=== PATIENT | female | born 1945 | race Caucasian/White ===

== ENCOUNTER 2017-05-02 00:35 | Outpatient (RCR) | payer MEDICARE ==
[2014-10-06 13:55] VITALS: BMI 29.1
[~2017-05-02 00:35] MED LIST: BENZ100C4 PO; CALC1TAB32 PO; CIPR-214 PO; CIT20 PO; CITA-139 PO; DOCU-416 PO; DONE5TAB29 PO; ENOX100D5 SQ; FURO-45 PO; FURO-47 PO; INDO-1 PO; LEV75 PO; LOR5/325 PO; MULT-820 PO; OMEP-125 PO; OXYB5TAB86 PO; OXYC-823 PO; OXYC-865 PO; OXYIR PO; PANT40TA65 PO; POTA2.5T7 PO; POTA20TA94 PO; PRED-1 PO; QUET25TA PO; RIV10 PO; SIMV5TAB60 PO; SULF-198 PO; TRAZ-156 PO; TRIA15CR40 TP; WARF-1 PO; WARF2.5T62 PO; ZIPR20CA11 PO; ZIPR80CA10 PO
[2017-05-02] MEDS ORDERED: IOPAMIDOL 76% 75 ML INFUS BTL 0 ML ONE (12:00)
[2017-05-02] MEDS ORDERED: IOPAMIDOL 76% 75 ML INFUS BTL 75 ML ONE (12:04)
--- NOTE | 2017-05-02 14:14 | RADIOLOGY IMAGING REPORT ---
FACILITY: [facility] PATIENT NAME: Lizzette Benjamin : 1945 MR: [id number] V: [id number] EXAM DATE: ORDERING PHYSICIAN: RIP MAY TECHNOLOGIST: Location: Patient: Lizzette Benjamin : 1945 Visit/Account:[id number] Date of Sevice: 05/02/2017 ABDOMEN/PELVIS WITH CONTRAST HISTORY: Hiatal hernia TECHNIQUE: Following administration of IV contrast contiguous axial images acquired through the abdom en/pelvis. Coronal and sagittal reformatting also performed. Dose Lowering Technique One of the following dose optimization techniques was utilized in the performance of this exam: Autom ated exposure control; adjustment of the mA and/or kV according to the patient's size; or use of an i terative reconstruction technique. Specific details can be referenced in the facility's radiology C T exam operational policy. CONTRAST: 75 mL Isovue-370 COMPARISON: July 01, 2013 and June 09, 2009 and August 15, 2006 FINDINGS: Visualized lung bases: There are pulmonary nodules seen in the lung bases bilaterally largest measur ing 6 mm in the right lower lobe although these appear to remain stable when compared to the prior CT dating back to 2006 Hepatobiliary: There Is a 5.6 x 4.8 cm cyst in the posterior right lobe the liver. There are additio nal small hypodensity seen throughout the liver that appear similar to the prior study likely represe nting additional cysts although are too small to characterize. There are postsurgical changes from a cholecystectomy Spleen: Negative. Adrenals: Negative. Pancreas: Negative. Kidneys ureters or bladder: Negative. Genitalia: Hysterectomy GI: There is diverticulosis left-sided colon although no CT evidence of acute diverticulitis is a ve ry large hiatal hernia appears slightly increased when compared the prior study Vessels/spaces/nodes: Negative. Bones/soft tissues: No aggressive appearing bone lesions are seen Additional findings: None pertinent. IMPRESSION: Large hiatal hernia slightly increased in size when compared the prior study Diverticulosis left-sided colon although no CT evidence of acute diverticulitis Hepatic cysts Pulmonary nodules are seen in the lower lung romero stable since 2006 Postsurgical changes from hysterectomy and cholecystectomy Report Dictated By: Alondra Worrell MD at 05/02/2017 1:56 PM Report E-Signed By: Alondra Worrell MD at 05/02/2017 2:10 PM WSN:[email or web address]
[2017-05-06] MEDS ORDERED: BARIUM SULFATE 176 GM BTL PO ONE (10:49)
[2017-05-06] MEDS ORDERED: BARIUM SULFATE 340 GM POWD ONE (10:49)
--- NOTE | 2017-05-06 16:44 | RADIOLOGY IMAGING REPORT ---
FACILITY: [facility] PATIENT NAME: Lizzette Benjamin : 1945 MR: [id number] V: [id number] EXAM DATE: ORDERING PHYSICIAN: RIP MAY TECHNOLOGIST: Location: [facility] - [place] Patient: Lizzette Benjamin : 1945 Visit/Account:[id number] Date of Sevice: 05/06/2017 Exam type: UPPER GI SERIES W/O AIR History: Abdomen pain, acid reflux and belching Comparison: None. Findings: Double contrast upper GI series was performed with thick and thin barium tertiary waves were noted wi thin the esophagus. There is a large hiatal hernia present with moderate narrowing of the distal eso phagus. 12 mm barium tablet did however pass into the stomach. No other abnormality of the stomach duodenal bulb or duodenal C-loop was seen a moderate amount of gastroesophageal reflux was observed. The fluoroscopy dose area product was 1200.47 micro-Dash per meter squared IMPRESSION: 1. Large hiatal hernia with a moderate narrowing of the distal esophagus however a 12 mm barium tabl et did pass into the stomach. Moderate gastric esophageal reflux Marked tertiary waves within the esophagus Report Dictated By: Alondra Worrell MD at 05/06/2017 4:35 PM Report E-Signed By: Alondra Worrell MD at 05/06/2017 4:39 PM WSN:[email or web address]
== END 2017-05-06 18:00 | disposition home or self-care (01) ==
LOC: CT 00:35
PROVIDERS: ATTEND Family Medicine
DX: K44.9 Diaphragmatic hernia without obstruction or gangrene (principal); K57.90 Diverticulosis of intestine, part unspecified, without perforation or abscess without bleeding; K76.89 Other specified diseases of liver; R91.1 Solitary pulmonary nodule; Z90.710 Acquired absence of both cervix and uterus; Z90.49 Acquired absence of other specified parts of digestive tract
CPT/HCPCS: 74177; 74240; Q9967

== ENCOUNTER 2017-08-07 04:42 | Outpatient (RCR) | payer MEDICARE ==
[2014-10-06 13:55] VITALS: BMI 29.1
[~2017-08-07 04:42] MED LIST changes: -CITA-139 PO; +CITA-145 PO; +DIPH-1 PO; +QUET200T PO; +SUCR1ORA17 PO
--- NOTE | 2017-08-07 09:47 | RADIOLOGY IMAGING REPORT ---
FACILITY: [facility] [place] PATIENT NAME: Lizzette Benjamin : 1945 MR: [id number] V: [id number] EXAM DATE: ORDERING PHYSICIAN: RIP MAY TECHNOLOGIST: Location: [facility] [place] Patient: Lizzette Benjamin : 1945 Visit/Account:[id number] Date of Sevice: 08/07/2017 ADDENDUM #1 Dose Lowering Technique One of the following dose optimization techniques was utilized in the performance of this exam: Autom ated exposure control; adjustment of the mA and/or kV according to the patient's size; or use of an i terative reconstruction technique. Specific details can be referenced in the facility's radiology C T exam operational policy. Report Dictated By: Alondra Worrell MD at 08/13/2017 3:20 PM Report E-Signed By: Alondra Worrell MD at 08/13/2017 3:20 PM ORIGINAL REPORT EXAMINATION: Head CT without intravenous contrast HISTORY: Sudden vision loss, headache TECHNIQUE: Contiguous axial images were obtained from the skull base to the vertex without intraven ous contrast. Sagittal and coronal reformatted images are also submitted. COMPARISON: Head CT December 05, 2016 FINDINGS: Brain volume: Normal. Ventricles: Normal. Acute ischemic changes: None. Hemorrhage: None. Masses / edema: None. Dash-white: Negative. White matter: Normal. Vessels: There are calcifications in the carotid siphons bilaterally. Extra-axial: Negative. Calvarium / scalp: There are multiple soft tissue nodules in the scalp similar to the prior CT Skull base / visualized face: Negative. Visualized sinuses / orbits: Negative. IMPRESSION: No acute intracranial process identified Calcifications are noted in the carotid siphons bilaterally. If patient's symptoms persist MR may be helpful Report Dictated By: Alondra Worrell MD at 08/07/2017 9:38 AM Report E-Signed By: Alondra Worrell MD at 08/07/2017 9:42 AM WSN:[email or web address]
--- NOTE | 2017-08-13 09:54 | RADIOLOGY IMAGING REPORT ---
[place] [facility] [place] NAME: Lizzette Benjamin : 1945 MR: [id number] V: [id number] EXAM DATE: ORDERING PHYSICIAN: RIP MAY TECHNOLOGIST: Location: [facility] Patient: Lizzette Benjamin : 1945 Visit/Account:[id number] Date of Sevice: 08/13/2017 Carotid artery Doppler duplex ultrasound scan. HISTORY: Sudden vision loss. A color flow Doppler duplex ultrasound scan with spectral analysis was performed on the carotid and v ertebral arteries bilaterally. Measurement of carotid stenosis is based on velocity parameters that correlate the residual internal carotid diameter with [place] Symptomatic Carotid Endarterecto my Trial (NASCET)- based stenosis levels. Right carotid peak systolic velocities are as follows: Superior right ICA - 81 cm/sec. Mid right ICA - 79 cm/sec. Proximal right ICA - 71 cm/sec. Right carotid bulb - 58 cm/sec. Superior right CCA - 70 cm/sec. Mid right CCA- 80 cm/sec. Inferior right CCA- 96 cm/sec. Proximal right ECA- 95 cm/sec. Mid right vertebral- 58 cm/sec. Right ICA/CCA ratio- 1.0 ( normal < 1.5 ). Antegrade right vertebral artery flow- YES. Left carotid peak systolic velocities are as follows: Superior left ICA - 90 cm/sec. Mid left ICA- 60 cm/sec. Proximal left ICA- 49 cm/sec. Left carotid bulb- 61 cm/sec. Superior left CCA- 62 cm/sec. Mid left CCA- 63 cm/sec. Inferior left CCA- 86 cm/sec. Proximal left ECA- 78 cm/sec. Mid left vertebral- 50 cm/sec. Left ICA/CCA ratio- 1.4 ( normal < 1.5). Antegrade left vertebral artery flow- YES. Intimal thickening and a few partially calcified plaques are present in the carotid bulbs and proxima l internal and external carotid arteries bilaterally resulting in 30-50% stenoses by visual criteria. IMPRESSION: 30-50% stenoses of the carotid bulbs and proximal internal carotid arteries bilaterally. Report Dictated By: Reddy Brooke MD at 08/13/2017 9:46 AM Report E-Signed By: Reddy Brooke MD at 08/13/2017 9:50 AM WSN:[id number]
== END 2017-08-13 18:00 | disposition home or self-care (01) ==
LOC: CT 04:42 → EDSTATUS 13:33 → CT 08-13 18:00
PROVIDERS: ATTEND Family Medicine
DX: H53.139 Sudden visual loss, unspecified eye (principal); I65.23 Occlusion and stenosis of bilateral carotid arteries
CPT/HCPCS: 70450; 93880

== ENCOUNTER → 2017-09-20 | Outpatient (CLI) | payer MEDICARE ==
[2014-10-06 13:55] VITALS: BMI 29.1
[~2017-09-20] MED LIST changes: -INDO-1 PO; +INDO-21 PO; -TRAZ-156 PO; +TRAZ50TA34 PO
--- NOTE | 2017-09-20 16:07 | RADIOLOGY IMAGING REPORT ---
FACILITY: PATIENT NAME: Lizzette Benjamin : 1945 MR: [id number] V: [id number] EXAM DATE: ORDERING PHYSICIAN: OTIS ASCENCIO TECHNOLOGIST: [facility] Patient: Lizzette Benjamin : 1945 Visit/Account:[id number] Date of Sevice: 09/20/2017 EXAMINATION: Nuclear Medicine Bone Scan, Three-phase Additional Pertinent history: Bilateral knee replacement. Pain. Swelling. COMPARISON STUDIES: None available TECHNIQUE: 24.2 mCi Tc HDP were injected intravenously. Angiographic, blood pool, and delayed gamma camera images were obtained of the bilateral knees and lower legs FINDINGS: Arterial phase images: No focal abnormality. Blood pool images of soft tissue: No focal abnormality. Delayed images of bone: There is evidence of normal expected uptake about the bilateral arthroplasti es of the knees without a focal abnormal increased uptake identified. There is mild increased uptake within the right tibiotalar joint and right midfoot region likely degenerative in nature. . IMPRESSION: 1. Evidence of normal expected symmetric uptake about the bilateral knee arthroplasties as above. 2. Likely degenerative uptake within the right ankle and midfoot Report Dictated By: Toni Begum MD at 09/20/2017 3:49 PM Report E-Signed By: Toni Begum MD at 09/20/2017 4:02 PM WSN:[email or web address]
== END ==
LOC: NUC 03:30
PROVIDERS: ATTEND Orthopaedic Surgery
DX: Z96.653 Presence of artificial knee joint, bilateral (principal)
CPT/HCPCS: 78315; A9503

== ENCOUNTER 2017-11-05 13:45 | Outpatient (RCR) | payer MEDICARE ==
[2014-10-06 13:55] VITALS: BMI 29.1
--- NOTE | 2017-08-09 11:41 | PT INITIAL EVALUATION ---
MEDICAL DIAGNOSIS: legs pain back pains TREATMENT DIAGNOSIS: same, cervical, thoracic, and lumbar pain DATE OF ONSET: 07/18/17 SUBJECTIVE: Lizzette Benjamin presents to physical therapy with B knee pain, cervical, thoracic, and lumbar pain that started approximately 3 weeks ago for no apparent reason. She reports that the cervical, thoracic, and lumbar pain came on at the exact same time. She rates her back pain to be 9/10. She rates that it is worse with bending, walking, lying, and in the pm. She reports that her pain is better with sitting, standing, as the day progresses, and in the am. She reports that her pain is disturbing her sleep. She reports that her bladder and bowel control has not changed since the back injury started. She denies recent accident, surgery, or imaging. She denies any increase in pain with coughing and sneezing; however, she reports an increase in pain with straining. She reports that she does have night pain and has lost 10 to 20 pounds over the last few months. She states that she has been trying to lose the weight. Pain location is T2-T12 and L3-5 and described as sharp. REHAB PROBLEM LIST: Increased Pain Decreased ROM Decreased Strength Decreased Endurance Decreased Balance Decreased Function Decreased ADL's Decreased Gait PREVIOUS MEDICAL HISTORY: See EMR OCCUPATION: Retired OBJECTIVE: Posture: She demonstrated B rounded shoulders, forward head, increased thoracic kyphosis, decreased lumbar lordosis; however, she does not demonstrate any R or L lateral shift. ROM: Trunk AROM: flexion: minimal restriction with painful end feel. extension: moderate restriction with painful end feel. side gliding R: minimal restriction with painful end feel. side gliding L: moderate restriction with painful end feel. Strength: B hip extension, abduction, flexion, B knee extension and flexion, and B ankle PF and DF: 4/5. B hip adduction: 5/5 Palpation: TTP: central spinous process of T2-T12 and L3-5 Sensation: Intact L2-S1 Special Tests: Repeated trunk flexion in lying: pain during the test and worse following the test. Repeated trunk extension in lying: pain during the test and worse following the test with peripheralized pain down her L LE. Repeated R and L side gliding: pain during the test and worse following the test. Repeated prone with L hip shift: pain during the test and better following the test with centralized low back pain and abolished radiating pain. Will test thoracic and cervical in the future. Mobility: Independent Gait: She demonstrated the following gait mechanics independently: increased base of support, normal B feet clearance, equal step lengths, increased lateral trunk movements, decreased B pelvic mobility, and no LOB. ASSESSMENT: Lizzette will benefit from skilled physical therapy addressing the listed impairments to improve function and QOL. Based on examination, her provisional classification is a derangement that responded well to postural lateral repeated movement. Short Term Goals 3 weeks: Pt will demonstrate centralized low back pain to improve function and QOL. 6 weeks: Pt will demonstrate centralized thoracic pain to improve function and QOL. 8 weeks: Pt will demonstrate abolished thoracic and low back pain to improve function and QOL. Patient's Goals get rid of her pain so that she can get back to gardening. PLAN: Patient to be seen for Manual Therapy/STM/MET Strengthening/condition Range of Motion Spinal Stabilization Work Hardening/Cond Stretching Neuromuscular Re-ed Closed Chain Program Posture/Body mechanics Gait Trg/Balance Trg Home Exercise Program Therapeutic Activities 2-3x/Week for 2 Months If you have any questions, comments, or concerns about this report or plan, please contact me at . Thank you, Toni Hinton, PT, DPT MTDD
--- NOTE | 2017-09-10 15:59 | PT PLAN OF CARE ---
Physician: Judy Cotter DO Patient is being seen: 2x/week Therapist: Toni Hinton, PT, DPT Medical Diagnosis: legs pain back pains Treatment Diagnosis: same, cervical, thoracic, and lumbar pain Date of Onset: 07/18/17 Date of Initial Evaluation: 08/08/17 Date patient was last seen: 09/09/17 Number of treatments: 10 Number of cancellations/No shows: 0 INTERVENTIONS: Manual Therapy/STM/MET Strengthening/condition Range of Motion Spinal Stabilization Work Hardening/Cond Stretching Neuromuscular Re-ed Closed Chain Program Posture/Body mechanics Gait Trg/Balance Trg Home Exercise Program Therapeutic Activities GOALS: 3 weeks: Pt will demonstrate centralized low back pain to improve function and QOL. MET 6 weeks: Pt will demonstrate centralized thoracic pain to improve function and QOL. Progressing well 8 weeks: Pt will demonstrate abolished thoracic and low back pain to improve function and QOL. Progressing well PATIENT'S GOAL: get rid of her pain so that she can get back to gardening. Status of Patient's Goals: Progressing well Patient Compliance: Good Prognosis: Good Reasons for continuing therapy: This is progress note for Lizzette Benjamin. She reports that her cervical spine are doing well and denies any pain. She reports that her low back pain is doing well and denies any pain. She reports that she has mid back pain and rates it to be 5/10. She demonstrated abolished low back and cervical pain with full cervical and trunk AROM in all directions with normal end feels. Furthermore, she centralized and abolished her thoracic pain by utilizing extension based principles. We will continue to centralize and abolish her thoracic pain until it has continued to stay abolished and then perform return to prior level of function activities. Posture: She demonstrated B rounded shoulders, forward head, increased thoracic kyphosis, decreased lumbar lordosis; however, she does not demonstrate any R or L lateral shift. ROM: Trunk AROM: flexion: NIL restriction with normal end feel. extension: NIL restriction with normal end feel. side gliding R: NIL restriction with normal end feel. side gliding L: NIL restriction with normal end feel. Strength: B hip extension, abduction, flexion, B knee extension and flexion, and B ankle PF and DF: 4/5. B hip adduction: 5/5 Palpation: TTP: central spinous process of T8 Mobility: Independent If you have any questions, please contact me at [phone]. Thank you, Toni Hinton, PT, DPT MTDD
--- NOTE | 2017-10-23 17:10 | PT PLAN OF CARE ---
Physician: Judy Cotter DO Patient is being seen: 2x/week Therapist: Toni Hinton, PT, DPT Medical Diagnosis: legs pain back pains Treatment Diagnosis: same, cervical, thoracic, lumbar pain, and B knee pain Date of Onset: 07/18/17 Date of Initial Evaluation: 08/08/17 Date patient was last seen: 10/22/17 Number of treatments: 20 Number of cancellations/No shows: 0 INTERVENTIONS: Manual Therapy/STM/MET Strengthening/condition Range of Motion Spinal Stabilization Work Hardening/Cond Stretching Neuromuscular Re-ed Closed Chain Program Posture/Body mechanics Gait Trg/Balance Trg Home Exercise Program Therapeutic Activities GOALS: 3 weeks: Pt will demonstrate centralized low back pain to improve function and QOL.MET 6 weeks: Pt will demonstrate centralized thoracic pain to improve function and QOL. MET 8 weeks: Pt will demonstrate abolished thoracic and low back pain to improve function and QOL. MET 8 weeks: Pt will be able to ambulation around her block without an increase in her B knees to improve function and QOL. 10 weeks: Pt will be able to demonstrate 4+/5 or greater with B hip, knee, and ankle strength to improve function and QOL. PATIENT'S GOAL: get rid of her pain so that she can get back to gardening. Status of Patient's Goals: Progressing Patient Compliance: Good Prognosis: Good Reasons for continuing therapy: This is a progress note for Lizzette Benjamin. She reports that she is doing well. She states that her low back, mid back, and cervical neck pain has abolished. Furthermore, she reports that she will continue to do the specific exercise twice daily for 6 more weeks. She reports that she would like to start working on her B knees to see if we can reduce that pain. She continues to demonstrate full trunk AROM in all directions with normalized end feels. She is independent with her specific exercises for her cervical, thoracic, and lumbar regions. We assessed her B knees today with increased pain and reduced PROM-AROM with B knee flexion and extension with abnormal end feels (empty end feels), increased pain with MMT's of flexion and extension, and reduced B hip abductor, flexion, extension, B knee flexion and extension, and B ankle PF and DF strength (4/5). Furthermore, she demonstrated reduced patellar accessory mobility superiorly, inferiorly, and medially. We will treat the impairments to see if pain can be reduced and function can be increased. Posture: She demonstrated B rounded shoulders, forward head, increased thoracic kyphosis, decreased lumbar lordosis; however, she does not demonstrate any R or L lateral shift. ROM: Trunk AROM: flexion: NIL restriction with normal end feel. extension: NIL restriction with normal end feel. side gliding R: NIL restriction with normal end feel. side gliding L: NIL restriction with normal end feel. Strength: B hip extension, abduction, flexion, B knee extension and flexion, and B ankle PF and DF: 4/5. B hip adduction: 5/5 Palpation: TTP: central spinous process of T8 Mobility: Independent If you have any questions, please contact me at [phone]. Thank you, Toni Hinton, PT, DPT SILVINOD
== END 2017-11-06 ==
LOC: PT 13:45
PROVIDERS: ATTEND Family Medicine
DX: M54.5 Low back pain (principal); M54.2 Cervicalgia; M54.6 Pain in thoracic spine; M25.561 Pain in right knee; M25.562 Pain in left knee
CPT/HCPCS: 97162

== ENCOUNTER → 2017-11-28 | Outpatient (CLI) | payer MEDICARE ==
[2014-10-06 13:55] VITALS: BMI 29.1
--- NOTE | 2017-11-28 14:34 | RADIOLOGY IMAGING REPORT ---
FACILITY: [facility] - [place] PATIENT NAME: Lizzette Benjamin : 1945 MR: [id number] V: [id number] EXAM DATE: ORDERING PHYSICIAN: RIP MAY TECHNOLOGIST: Location: [facility] Patient: Lizzette Benjamin : 1945 Visit/Account:[id number] Date of Sevice: 11/28/2017 Exam type: VENOUS DOPP LOW RIGHT EXTREMIT History: Right ankle pain and swelling Comparison: May 25, 2016. Findings: Right lower extremity veins were imaged including the right common femoral vein greater saphenous vei n superficial femoral vein popliteal vein posterior tibial vein anterior tibial vein peroneal vein re vealing no evidence of intraluminal thrombi. The veins were compressible and demonstrated augmentati on IMPRESSION: 1. No sonographic evidence DVT involving the lower extremity veins of the right leg Report Dictated By: Alondra Worrell MD at 11/28/2017 2:28 PM Report E-Signed By: Alondra Worrell MD at 11/28/2017 2:29 PM WSN:[email or web address]
== END ==
LOC: US 07:15
PROVIDERS: ATTEND Family Medicine
DX: M25.571 Pain in right ankle and joints of right foot (principal); M25.471 Effusion, right ankle

== ENCOUNTER 2017-12-24 13:58 | Outpatient (RCR) | payer MEDICARE ==
[2014-10-06 13:55] VITALS: BMI 29.1
--- NOTE | 2017-11-14 15:23 | PT PLAN OF CARE ---
Physician: Judy Cotter DO Patient is being seen: 2x/week Therapist: Toni Hinton, PT, DPT Medical Diagnosis: legs pain back pains Treatment Diagnosis: same, cervical, thoracic, and lumbar pain Date of Onset: 07/18/17 Date of Initial Evaluation: 08/08/17 Date patient was last seen: 11/14/17 Number of treatments: 26 Number of cancellations/No shows: 0 INTERVENTIONS: Manual Therapy/STM/MET Strengthening/condition Range of Motion Spinal Stabilization Work Hardening/Cond Stretching Neuromuscular Re-ed Closed Chain Program Posture/Body mechanics Gait Trg/Balance Trg Home Exercise Program Therapeutic Activities GOALS: 3 weeks: Pt will demonstrate centralized low back pain to improve function and QOL. MET 6 weeks: Pt will demonstrate centralized thoracic pain to improve function and QOL. MET 8 weeks: Pt will demonstrate abolished thoracic and low back pain to improve function and QOL. MET 8 weeks: Pt will be able to ambulation around her block without an increase in her B knees to improve function and QOL. 10 weeks: Pt will be able to demonstrate 4+/5 or greater with B hip, knee, and ankle strength to improve function and QOL. PATIENT'S GOAL: get rid of her pain so that she can get back to gardening. Progressing Status of Patient's Goals: Progressing well Patient Compliance: Good Prognosis: Good Reasons for continuing therapy: This is a progress note for Lizzette Benjamin. She reports that she is doing well. She denies any lumbar, thoracic, or cervical pain. She reports that she feels like her core and B LE's are getting stronger. She reports that she also feels less pain in her B LE's. She states that she is much more functional at with home with her garden and with her other chores. She is progressing well with abolished low back, thoracic, and cervical pain with a return to full AROM. Furthermore, she has demonstrated significant improvements with B hips, B knees, and B ankle musculature with reduction of B LE pain. We will continue to improve core and B LE strength and return to prior level of function in the next 10 session and then discharged to [facility]. Posture: She demonstrated B rounded shoulders, forward head, increased thoracic kyphosis, decreased lumbar lordosis; however, she does not demonstrate any R or L lateral shift. ROM: Trunk AROM: flexion: NIL restriction with normal end feel. extension: NIL restriction with normal end feel. side gliding R: NIL restriction with normal end feel. side gliding L: NIL restriction with normal end feel. Strength: B hip extension, abduction, flexion, B knee extension and flexion, and B ankle PF and DF: 4/5. B hip adduction: 5/5 Palpation: TTP: central spinous process of T8 Mobility: Independent If you have any questions, please contact me at [phone]. Thank you, Toni Hinton, PT, DPT MTDD
--- NOTE | 2017-12-19 14:47 | PT PLAN OF CARE ---
Physician: Judy Cotter DO Patient is being seen: 2x/week Therapist: Toni Hinton, PT, DPT Medical Diagnosis: legs pain back pains Treatment Diagnosis: same, cervical, thoracic, and lumbar pain Date of Onset: 07/18/17 Date of Initial Evaluation: 08/08/17 Date patient was last seen: 12/19/17 Number of treatments: 36 Number of cancellations/No shows: 2 INTERVENTIONS: Manual Therapy/STM/MET Strengthening/condition Range of Motion Spinal Stabilization Work Hardening/Cond Stretching Neuromuscular Re-ed Closed Chain Program Posture/Body mechanics Gait Trg/Balance Trg Home Exercise Program Therapeutic Activities GOALS: 3 weeks: Pt will demonstrate centralized low back pain to improve function and QOL. MET 6 weeks: Pt will demonstrate centralized thoracic pain to improve function and QOL. MET 8 weeks: Pt will demonstrate abolished thoracic and low back pain to improve function and QOL. MET 10 weeks: Pt will be able to demonstrate 4+/5 or greater with B hip, knee, and ankle strength to improve function and QOL. PATIENT'S GOAL: get rid of her pain so that she can get back to gardening. Progressing Status of Patient's Goals: Progressing well Patient Compliance: Good Prognosis: Good Reasons for continuing therapy: This is a progress note for Lizzette Benjamin. She reports that she is doing well. She denies any lumbar, thoracic, or cervical pain. She reports that she feels like her core and B LE's are getting stronger. She reports that the B knee pain has returned and rates her pain to be 6/10. She reports minimal pain with walking. She states that she is much more functional at with home with her garden and with her other chores. She is progressing well with abolished low back, thoracic, and cervical pain with a return to full AROM. She demonstrated potential reduction of pain with repeated knee flexion and abolished pain with ambulation following the session. She continues to have resting pain of 5/10. We will see if the motion reduces her knee pain and then we will discharge in the next 2 sessions. Posture: She demonstrated B rounded shoulders, forward head, increased thoracic kyphosis, decreased lumbar lordosis; however, she does not demonstrate any R or L lateral shift. ROM: Trunk AROM: flexion: NIL restriction with normal end feel. extension: NIL restriction with normal end feel. side gliding R: NIL restriction with normal end feel. side gliding L: NIL restriction with normal end feel. Strength: B hip extension, abduction, flexion, B knee extension and flexion, and B ankle PF and DF: 5/5. B hip adduction: 5/5 Mobility: Independent If you have any questions, please contact me at [phone]. Thank you, Toni Hinton, PT, DPT SILVINOD
--- NOTE | 2017-12-24 16:03 | PT PLAN OF CARE ---
Physician: Judy Cotter DO Patient is being seen: 2x/week Therapist: Toni Hinton, PT, DPT Medical Diagnosis: legs pain back pains Treatment Diagnosis: same, cervical, thoracic, and lumbar pain Date of Onset: 07/18/17 Date of Initial Evaluation: 08/08/17 Date patient was last seen: 12/24/17 Number of treatments: 37 Number of cancellations/No shows: 2 INTERVENTIONS: Manual Therapy/STM/MET Strengthening/condition Range of Motion Spinal Stabilization Work Hardening/Cond Stretching Neuromuscular Re-ed Closed Chain Program Posture/Body mechanics Gait Trg/Balance Trg Home Exercise Program Therapeutic Activities GOALS: 3 weeks: Pt will demonstrate centralized low back pain to improve function and QOL. MET 6 weeks: Pt will demonstrate centralized thoracic pain to improve function and QOL. MET 8 weeks: Pt will demonstrate abolished thoracic and low back pain to improve function and QOL. MET 10 weeks: Pt will be able to demonstrate 4+/5 or greater with B hip, knee, and ankle strength to improve function and QOL. MET PATIENT'S GOAL: get rid of her pain so that she can get back to gardening. MET Status of Patient's Goals: MET Patient Compliance: MET Prognosis: Good Reasons for continuing therapy: This is a discharge note for Lizzette Benjamin. She reports that she is doing well. She denies any cervical, thoracic, and lumbar pain. She reports that her B knees are doing better as well. She reports that she no longer has the extremely intense pain on the back sides of her knees. He occasionally feels B lateral knee pain that improves with her repeated knee flexion. She has progressed well within PT with abolished cervical, thoracic, and lumbar pain. She has progressed well with abolished B knee pain in most areas; however, she continues to have lateral knee pain that seems to be decreased or even abolished with repeated knee flexion. Furthermore, she has demonstrated significant improvements in core and B LE strength. She has returned to prior level of function. She has met all of her goals. As a result, she will be discharged from PT to [facility]. Posture: She demonstrated B rounded shoulders, forward head, increased thoracic kyphosis, decreased lumbar lordosis; however, she does not demonstrate any R or L lateral shift. ROM: Trunk AROM: flexion: NIL restriction with normal end feel. extension: NIL restriction with normal end feel. side gliding R: NIL restriction with normal end feel. side gliding L: NIL restriction with normal end feel. Strength: B hip extension, abduction, flexion, B knee extension and flexion, and B ankle PF and DF: 5/5. B hip adduction: 5/5 Mobility: Independent If you have any questions, please contact me at [phone]. Thank you, Toni Hinton, PT, DPT SILVINOD
== END 2017-12-24 18:00 | disposition home or self-care (01) ==
LOC: PT 13:58
PROVIDERS: ATTEND Family Medicine
DX: M54.5 Low back pain (principal); M54.2 Cervicalgia; M54.6 Pain in thoracic spine; M25.561 Pain in right knee; M25.562 Pain in left knee

== ENCOUNTER → 2018-01-01 | Outpatient (CLI) | payer MEDICARE ==
[2014-10-06 13:55] VITALS: BMI 29.1
[~2018-01-01] MED LIST changes: +CITA-141 PO; +DONE10TA45 PO; +QUET400T PO
[2018-01-01 15:30] LABS: PLATELET COUNT, AUTOMATED 588 K/uL (150-450)
[2018-01-01 15:38] LABS: LDL CHOLESTEROL 72 mg/dl
== END ==
LOC: LAB 15:14
PROVIDERS: ATTEND Internal Medicine
DX: M54.9 Dorsalgia, unspecified (principal); F41.8 Other specified anxiety disorders; K21.9 Gastro-esophageal reflux disease without esophagitis; E78.5 Hyperlipidemia, unspecified; E03.9 Hypothyroidism, unspecified; N32.81 Overactive bladder; R73.9 Hyperglycemia, unspecified
CPT/HCPCS: 36415; 81001; 82040; 82247; 82310; 82374; 82435; 82465; 82565; 82947; 83036; 83718; 84075; 84132; 84155; 84295; 84443; 84450; 84460; 84478; 84520; 84550; 85025

== ENCOUNTER → 2018-01-08 | Outpatient (CLI) | payer MEDICARE ==
[2014-10-06 13:55] VITALS: BMI 29.1
[~2018-01-08] MED LIST changes: +CHOL10005 PO; +MELO-205 PO; +SIMV-49 PO
--- NOTE | 2018-01-08 14:15 | RADIOLOGY IMAGING REPORT ---
FACILITY: [facility] PATIENT NAME: RADHA PHILIP : [id number] MR: [id number] V: [id number] EXAM DATE: [id number] ORDERING PHYSICIAN: CLARIBEL DICK TECHNOLOGIST: Hugo Allen RDMS, JUDITH PROCEDURE:US BILATERAL BREAST COMPARISON:None. INDICATIONS:BILATERAL BREAST PAIN FINDINGS: In the 9 o'clock position of the Right breast 4cm from the nipple there is a 9.7 x 8.7 x 5.1mm ovoid echogenic nodule which may represent a small fatty replaced lymph node or other fatty deposit. No other sonographic abnormality was identified in the Right breast. The entire Left breast was imaged sonographically revealing no abnormality. DIAGNOSTIC CATEGORY 0--INCOMPLETE: NEED ADDITIONAL IMAGING EVALUATION. RECOMMENDATIONS: ADDITIONAL MAMMOGRAPHIC VIEWS REQUIRED: BILATERAL BREASTS. IMPRESSION: BIRADS 0: Incomplete. There is a small fatty nodule in the 9 o'clock position of the Right breast. The remainder of the bilateral breast Ultrasound was unremarkable. Bilateral diagnostic mammogram is recommended to evaluate patient's bilateral breast pain. Dictated by: Alondra Worrell M.D. on 01/08/2018 at 11:59 Transcribed by: VICTOR MANUEL on 01/08/2018 at 13:11 Approved by: Alondra Worrell M.D. on 01/08/2018 at 14:14 [facility]
== END ==
LOC: US 01:00
PROVIDERS: ATTEND Internal Medicine
DX: N63.13 Unspecified lump in the right breast, lower outer quadrant (principal)

== ENCOUNTER → 2018-01-08 | Outpatient (CLI) | payer MEDICARE ==
[2014-10-06 13:55] VITALS: BMI 29.1
--- NOTE | 2018-01-08 12:30 | RADIOLOGY IMAGING REPORT ---
[place] [facility] [place] NAME: Lizzette Benjamin : 1945 MR: [id number] V: [id number] EXAM DATE: ORDERING PHYSICIAN: RIP MAY TECHNOLOGIST: Location: [facility] [place] Patient: Lizzette Benjamin : 1945 Visit/Account:[id number] Date of Sevice: 01/08/2018 Exam type: CHEST PA AND LAT History: Shortness of breath, history of pneumonia, Comparison: January 30, 2016. Findings: The lungs appear free of acute effusions, infiltrates or edema. Cardiac silhouette is normal in size . There is a large hiatal hernia projecting in the retrocardiac space. This mild ectasia the thorac ic aorta. There is a suggestion of old right-sided rib fractures. IMPRESSION: 1. Large hiatal hernia No evidence of acute pulmonary consolidation Report Dictated By: Alondra Worrell MD at 01/08/2018 12:20 PM Report E-Signed By: Alondra Worrell MD at 01/08/2018 12:24 PM WSN:[email or web address]
== END ==
LOC: RAD 10:33
PROVIDERS: ATTEND Family Medicine
DX: K44.9 Diaphragmatic hernia without obstruction or gangrene (principal)
CPT/HCPCS: 71046

== ENCOUNTER 2018-01-20 10:49 | Emergency (ER) | payer MEDICARE ==
[2014-10-06 13:55] VITALS: Wt 92.5 kg
--- NOTE | 2018-01-20 11:13 | ER Report ---
History and Physical Time Seen By MD: 11:12 [facility]/ROS CHIEF COMPLAINT: Abdominal pain HISTORY OF PRESENT ILLNESS: This is a 72-year-old female presents to the emergency department for epigastric and abdominal pain. Patient states that she was diagnosed with a hiatal hernia last year, feels as though it has been getting worse, over the last month that seems to be increasing in intensity, today is significantly worse generalized abdominal pain with severe epigastric discomfort. Nausea and vomiting. No fevers or chills. No diarrhea. Normal bowel movement today. Patient decided to come in for further evaluation due to the intensity of the pain. No dysuria. No chest pain or shortness of breath. Although it does increase the epigastric pain with a deep breath. REVIEW OF SYSTEMS: Constitutional: No fever, no chills. Eyes: No discharge. ENT: No sore throat. Cardiovascular: No chest pain, no palpitations. Respiratory: As above. Gastrointestinal: As above. Genitourinary: No hematuria. Musculoskeletal: No back pain. Skin: No rashes. Neurological: No headache. Allergies: Coded Allergies: aspirin (Verified Allergy, Severe, SHUTS DOWN HER KIDNEYS, 01/20/18) ampicillin (Verified Allergy, Intermediate, RASH, 01/20/18) Penicillins (Verified Allergy, Unknown, HIVES, 01/20/18) Home Meds Active Scripts Sucralfate (CARAFATE) 1 Gm Tablet, 1 GM PO QID, #60 TAB 0 Refills Take before meals and at bedtime. Crush the tablet and mix with water before taking. Prov:HANSA MERAZP-BC 01/20/18 Pantoprazole Sodium (PANTOPRAZOLE SODIUM) 40 Mg Tablet.dr, 1 TAB PO DAILY, #60 TAB 0 Refills Take on an empty stomach and wait 1/2 hour before eating. Prov:HANSA MERAZP-BC 01/20/18 Meloxicam (MELOXICAM) 7.5 Mg Tablet, 7.5 MG PO BID PRN for pain, #30 TAB 2 Refills Prov:CLARIBEL DICK MD 01/09/18 Simvastatin (SIMVASTATIN) 20 Mg Tablet, 20 MG PO HS, #30 TAB 3 Refills Prov:CLARIBEL DICK MD 01/09/18 Reported Medications Cholecalciferol (Vitamin D3) (VITAMIN D3) 1,000 Unit Tablet, 1000 UNIT PO QDAY, TAB 01/09/18 Oxybutynin Chloride (OXYBUTYNIN CHLORIDE) 5 Mg Tablet, 5 MG PO BID, TAB 01/01/18 Quetiapine Fumarate (QUETIAPINE FUMARATE) 400 Mg Tablet, 800 MG PO QHS 01/01/18 Donepezil Hcl (DONEPEZIL HCL) 10 Mg Tab.rapdis, 10 MG PO QDAY, TAB 01/01/18 Citalopram Hydrobromide (CITALOPRAM HBR) 40 Mg Tablet, 40 MG PO QDAY, #5 TAB 01/01/18 Multivitamins (Multivitamin) 1 Tab Tablet, 1 TAB PO DAILY, 0 Refills 12/23/08 Levothyroxine Sodium (Synthroid/Levothroid) 0.075 Mg Tab, 0.075 MG PO QDAY, #1 0 Refills 12/23/08 Past Medical/Surgical History The patient has a past medical and surgical history migraines, right leg DVT, pneumonia, GERD, urinary incontinence, arthritis, osteoporosis, right ankle fracture, chronic back pain, wears glasses, large hiatal hernia, depression, appendectomy, cholecystectomy, colonoscopy with polyps removed, hysterectomy, back surgery, tonsillectomy. Reviewed Nurses Notes: Yes Hx Smoking: Yes Smoking Status: Current: Every Day Smoker Exposure to Second Hand Smoke?: No Hx Substance Use Disorder: No Hx Alcohol Use: Yes (DENIES DAILY USE) Constitutional Vital Sign - Last 24 Hours 01/20/18 01/20/18 01/20/18 01/20/18 11:03 11:07 11:11 12:07 Temp 97.7 97.7 Pulse 79 78 74 69 Resp 12 B/P (MAP) 146/77 (100) 146/77 Pulse Ox 96 95 94 94 O2 Delivery Room Air Room Air 01/20/18 01/20/18 01/20/18 01/20/18 12:30 12:35 13:00 13:05 Pulse ??? 68 B/P (MAP) 121/66 (84) 121/66 (84) Pulse Ox 94 01/20/18 01/20/18 01/20/18 13:30 13:35 14:00 Pulse 72 B/P (MAP) 110/68 (82) 122/96 (105) Pulse Ox 94 Physical Exam General Appearance: The patient is alert, has no immediate need for airway protection and no signs of toxicity, appears uncomfortable. Eyes: Pupils equal and round no pallor or injection. ENT, Mouth: Mucous membranes are moist. Respiratory: There are no retractions, lungs are clear to auscultation. Cardiovascular: Regular rate and rhythm, no murmurs, clicks or rubs. Gastrointestinal: Abdomen is round, soft, diffuse tenderness throughout the abdomen with light percussion. Hyperactive bowel sounds. No masses, no abdominal bruits. Neurological: Alert and oriented 4. Moving all extremities. Following all commands. No focal neuro deficits. Skin: Warm and dry, no rashes. Musculoskeletal: Neck is supple non tender. Extremities are nontender, nonswollen and have full range of motion. DIFFERENTIAL DIAGNOSIS: After history and physical exam differential diagnosis was considered for abdominal pain including but not limited to appendicitis, cholecystitis, gastritis and urinary tract infection. Medical Decision Making Data Points Result Diagram: 01/20/18 1217 01/20/18 1143 Laboratory Hematology Test 01/20/18 11:43 01/20/18 12:17 Urine Color Straw Urine Clarity Clear Urine pH 7.0 pH (4.8-9.5) Urine Specific [place] 1.004 Urine Protein Negative mg/dL (NEGATIVE) Urine Glucose (UA) 50 mg/dL (NEGATIVE) Urine Ketones Negative mg/dL (NEGATIVE) Urine Blood Negative (NEGATIVE) Urine Nitrite Negative (NEGATIVE) Urine Bilirubin Negative (NEGATIVE) Urine Urobilinogen Negative mg/dL (0.2-1.9) Urine Leukocyte Esterase Negative (NEGATIVE) Urine RBC None /HPF (0-2/HPF) Urine WBC <1 /HPF (0-5/HPF) Urine Squamous Epithelial Cells Many /LPF (</=FEW) Urine Bacteria Few /HPF (NONE-FEW) Urine Mucus None /HPF (NONE-FEW) Sodium Level 138 mmol/L (137-145) Potassium Level 4.5 mmol/L (3.5-5.0) Chloride Level 108 mmol/L (98-107) Carbon Dioxide Level 25 mmol/L (22-31) Blood Urea Nitrogen 14 mg/dl (7-18) Creatinine 0.60 mg/dl (0.52-1.04) Glomerular Filtration Rate Calc > 60.0 Random Glucose 96 mg/dl (75-110) Calcium Level 10.6 mg/dl (8.4-10.2) Total Bilirubin 0.4 mg/dl (0.2-1.3) Aspartate Amino Transf (AST/SGOT) 16 U/L (0-35) Alanine Aminotransferase (ALT/SGPT) 18 U/L (0-56) Alkaline Phosphatase 79 U/L (0-126) Total Protein 7.4 g/dl (6.3-8.2) Albumin 4.2 g/dl (3.5-5.0) Lipase 130 U/L (23-300) Red Blood Count 4.51 M/uL (4.17-5.56) Mean Corpuscular Volume 93.8 fL (80.0-96.0) Mean Corpuscular Hemoglobin 31.8 pg (26.0-33.0) Mean Corpuscular Hemoglobin Concent 33.9 g/dL (32.0-36.0) Red Cell Distribution Width 14.1 % (11.5-14.5) Mean Platelet Volume 7.5 fL (7.2-11.1) Neutrophils (%) (Auto) 62.0 % (39.4-72.5) Lymphocytes (%) (Auto) 24.0 % (17.6-49.6) Monocytes (%) (Auto) 9.8 % (4.1-12.4) Eosinophils (%) (Auto) 3.5 % (0.4-6.7) Basophils (%) (Auto) 0.7 % (0.3-1.4) Nucleated RBC Relative Count (auto) 0.0 /100WBC Neutrophils # (Auto) 5.0 K/uL (2.0-7.4) Lymphocytes # (Auto) 1.9 K/uL (1.3-3.6) Monocytes # (Auto) 0.8 K/uL (0.3-1.0) Eosinophils # (Auto) 0.3 K/uL (0.0-0.5) Basophils # (Auto) 0.1 K/uL (0.0-0.1) Nucleated RBC Absolute Count (auto) 0.00 K/uL Chemistry Test 01/20/18 11:43 01/20/18 12:17 Urine Color Straw Urine Clarity Clear Urine pH 7.0 pH (4.8-9.5) Urine Specific [place] 1.004 Urine Protein Negative mg/dL (NEGATIVE) Urine Glucose (UA) 50 mg/dL (NEGATIVE) Urine Ketones Negative mg/dL (NEGATIVE) Urine Blood Negative (NEGATIVE) Urine Nitrite Negative (NEGATIVE) Urine Bilirubin Negative (NEGATIVE) Urine Urobilinogen Negative mg/dL (0.2-1.9) Urine Leukocyte Esterase Negative (NEGATIVE) Urine RBC None /HPF (0-2/HPF) Urine WBC <1 /HPF (0-5/HPF) Urine Squamous Epithelial Cells Many /LPF (</=FEW) Urine Bacteria Few /HPF (NONE-FEW) Urine Mucus None /HPF (NONE-FEW) Glomerular Filtration Rate Calc > 60.0 Calcium Level 10.6 mg/dl (8.4-10.2) Total Bilirubin 0.4 mg/dl (0.2-1.3) Aspartate Amino Transf (AST/SGOT) 16 U/L (0-35) Alanine Aminotransferase (ALT/SGPT) 18 U/L (0-56) Alkaline Phosphatase 79 U/L (0-126) Total Protein 7.4 g/dl (6.3-8.2) Albumin 4.2 g/dl (3.5-5.0) Lipase 130 U/L (23-300) White Blood Count 8.1 k/uL (4.5-11.0) Red Blood Count 4.51 M/uL (4.17-5.56) Hemoglobin 14.4 g/dL (12.0-16.0) Hematocrit 42.3 % (34.0-47.0) Mean Corpuscular Volume 93.8 fL (80.0-96.0) Mean Corpuscular Hemoglobin 31.8 pg (26.0-33.0) Mean Corpuscular Hemoglobin Concent 33.9 g/dL (32.0-36.0) Red Cell Distribution Width 14.1 % (11.5-14.5) Platelet Count 513 K/uL (150-450) Mean Platelet Volume 7.5 fL (7.2-11.1) Neutrophils (%) (Auto) 62.0 % (39.4-72.5) Lymphocytes (%) (Auto) 24.0 % (17.6-49.6) Monocytes (%) (Auto) 9.8 % (4.1-12.4) Eosinophils (%) (Auto) 3.5 % (0.4-6.7) Basophils (%) (Auto) 0.7 % (0.3-1.4) Nucleated RBC Relative Count (auto) 0.0 /100WBC Neutrophils # (Auto) 5.0 K/uL (2.0-7.4) Lymphocytes # (Auto) 1.9 K/uL (1.3-3.6) Monocytes # (Auto) 0.8 K/uL (0.3-1.0) Eosinophils # (Auto) 0.3 K/uL (0.0-0.5) Basophils # (Auto) 0.1 K/uL (0.0-0.1) Nucleated RBC Absolute Count (auto) 0.00 K/uL Urinalysis Test 01/20/18 11:43 Urine Color Straw Urine Clarity Clear Urine pH 7.0 pH (4.8-9.5) Urine Specific [place] 1.004 Urine Protein Negative mg/dL (NEGATIVE) Urine Glucose (UA) 50 mg/dL (NEGATIVE) Urine Ketones Negative mg/dL (NEGATIVE) Urine Blood Negative (NEGATIVE) Urine Nitrite Negative (NEGATIVE) Urine Bilirubin Negative (NEGATIVE) Urine Urobilinogen Negative mg/dL (0.2-1.9) Urine Leukocyte Esterase Negative (NEGATIVE) Urine RBC None /HPF (0-2/HPF) Urine WBC <1 /HPF (0-5/HPF) Urine Squamous Epithelial Cells Many /LPF (</=FEW) Urine Bacteria Few /HPF (NONE-FEW) Urine Mucus None /HPF (NONE-FEW) EKG/Imaging EKG Interpretation 12 lead EKG: EKG 1131. Rhythm: Normal sinus rhythm, ventricular rate 69 bpm. [place]: normal QRS: normal ST segments: No ST depression or elevation identified, flattened T waves in V2, V3. No significant changes from the 02/28/2016 EKG. Imaging Location: [facility] [place] Patient: Lizzette Benjamin : 1945 Visit/Account:[id number] Date of Sevice: 01/20/2018 EXAMINATION: CT abdomen with IV contrast CT pelvis with IV contrast HISTORY: Epigastric pain, question worsening hernia. COMPARISON: 05/02/2017. TECHNIQUE: Axial images were taken through the abdomen and pelvis with intravenous contrast. Sagittal and coronal reformatted images are also sub mitted. CONTRAST: 75 mL of IV [id number] One of the following dose optimization techniques was utilized in the performance of this exam: Automated exposure control; adjustment of the mA and/or kV according to the patient's size; or use of an iterative reconstruction technique. Specific details can be referenced in the facility's radiology CT exam operational policy. FINDINGS: Liver/biliary: A few liver cysts, the largest measuring 5.8 cm. Postcholecystectomy. Pancreas: Negative. Spleen: Negative. Adrenal glands: Negative. Kidneys: Negative. Pelvic structures: Status post hysterectomy. Bowel: Colonic diverticulosis without evidence of diverticulitis. Appendix is not identified. No pericecal inflammatory changes. Large hiatal hernia, similar to previous examination. Peritoneum/retroperitoneum/mesenteries: No intraperitoneal free air or free fluid. Vessels: Mild calcified plaque of the aorta and iliac arteries. Calcified plaque along the splenic artery and superior mesenteric artery. Musculoskeletal/body wall: Small fat-containing umbilical hernia. Mild disc and facet degenerative changes in the lumbar spine. The bones are osteopenic. Lymph node assessment: Negative. Lower chest: There are a few small pulmonary nodules at the lung bases which are unchanged since the previous examination. IMPRESSION: Large hiatal hernia. This is unchanged compared with the previous examination. Colonic diverticulosis without evidence of diverticulitis. Other nonacute findings as detailed in the body of the report. Report Dictated By: Caleb Barrett MD at 01/20/2018 12:56 PM Report E-Signed By: Caleb Barrett MD at 01/20/2018 1:14 PM WSN:[email or web address] Location: [facility] [place] Patient: Lizzette Benjamin : 1945 Visit/Account:[id number] Date of Sevice: 01/20/2018 CHEST PA AND LAT INDICATION: Epigastric pain COMPARISON: January 08, 2018 FINDINGS: The cardiac silhouette is normal in size. Moderate to large sized hiatal hernia is present and is more visible on the comparison. No pneumothora x. No free air. Minimal left basilar new subsegmental atelectasis. Otherwise clear lungs. No osseous abnormality. No pleural fluid. IMPRESSION: 1. No apparent acute finding. 2. Minimal left basilar subsegmental atelectasis. 3. Moderate to large hiatal hernia is likely unchanged but better visualized on comparison. Report Dictated By: Dillon Rockwell MD at 01/20/2018 12:57 PM Report E-Signed By: Dillon Rcokwell MD at 01/20/2018 12:59 PM WSN:[email or web address] ED Course/Re-evaluation Clinical Indication for ER IV: Hydration, IV Access ED Course The patient was admitted to room. History of physical were obtained. Differential diagnoses were considered. IV was started. A CBC, CMP, lipase were obtained.CBC unremarkable, chemistry unremarkable, negative urine. EKG showing normal sinus rhythm. Patient was given a 500 mL normal saline bolus, 4 mg IV Zofran, 4 mg IV morphine, 50 mg IV fentanyl, improvement of pain after the IV fentanyl. Improvement of nausea. A CT of the abdomen and pelvis showing a large hiatal hernia, unchanged from the previous studies, diverticulosis, no diverticulitis. I did review the laboratory studies and imaging results with the patient, did tell her that the CT is not indicating any significant changes in the size of the hernia. I did speak with Dr. Mathews, the surgeon iron guardrail installer, we decided to start the Protonix again the patient has not been taking this, as well as Carafate. I discussed this with the patient. I also recommended that she follows up with Dr. pablo, for definitive care. Patient expressed understanding. A prescription for Carafate and Protonix was sent to the patient's pharmacy. Patient had no questions or concerns at this time and was discharged home. Patient did have improvement while in the ED. Encouraged to return to the ER for any acute concerns or worsening symptoms. Decision to Disposition Date: Jan 20, 2018 Decision to Disposition Time: 13:59 Depart Departure Latest Vital Signs Vital Signs Date Time Temp Pulse Resp B/P (MAP) Pulse Ox O2 Delivery O2 Flow Rate FiO2 01/20/18 14:00 122/96 (105) 01/20/18 13:35 72 94 01/20/18 11:11 97.7 12 Room Air Impression: Primary Impression: Hiatal hernia Condition: Improved Disposition: HOME OR SELF-CARE Referrals: CLARIBEL DICK MD (PCP) RIP COTTER DO 5 Days FRANCHESCA SALTER MD 5 Days New Scripts Sucralfate (CARAFATE) 1 Gm Tablet 1 GM PO QID, #60 TAB 0 Refills Take before meals and at bedtime. Crush the tablet and mix with water before taking. Prov: HANSA MERAZ 01/20/18 Pantoprazole Sodium (PANTOPRAZOLE SODIUM) 40 Mg Tablet.dr 1 TAB PO DAILY, #60 TAB 0 Refills Take on an empty stomach and wait 1/2 hour before eating. Prov: HANSA MERAZ 01/20/18 Patient Instructions: Hiatal Hernia (ED), Peptic Ulcer (ED) Additional Instructions: Call Dr. Mathews's office today to schedule a follow-up appointment for sometime in the near future. I would also recommend following up with Dr. Cotter within 1 week for reevaluation if at all possible. Drink plenty of water. Get plenty of rest. I am Going to restart your Protonix, take 40 mg once a day to start, when he follow-up with Dr. Hoang or Dr. Mathews they may increase it to twice a day, however if unable to get into see them and after 1-2 weeks there is no improvement U can start taking 40 mg twice a day. I also sent a prescription for Carafate two-year pharmacy as there is a concern that in addition to the hernia you could have an ulcer. Return to the emergency department for any acute concerns or worsening symptoms. HANSA MERAZ Jan 20, 2018 11:13
[2018-01-20] MEDS ORDERED: NS(*) 0.9% 500 ML BAG 500 ML IV ONE (11:23)
[2018-01-20] MEDS ORDERED: ONDANSETRON 4 MG/2 ML VIAL IVP ONE (11:25)
[2018-01-20] MEDS ORDERED: MORPHINE 4 MG/ML SDV IVP ONE (11:25)
--- NOTE | 2018-01-20 11:40 | EKG ---
FACILITY: [facility] PATIENT NAME: RADHA PHILIP : [id number] MR: [id number] V: [id number] EXAM DATE: ORDERING PHYSICIAN: HANSA MERAZ TECHNOLOGIST: FUENTES Thornton Reason : Blood Pressure : / mmHG Vent. Rate : 069 BPM Atrial Rate : 069 BPM P-R Int : 182 ms QRS Dur : 082 ms QT Int : 384 ms P-R-T Axes : 000 013 041 degrees QTc Int : 411 ms Normal sinus rhythm Normal ECG When compared with ECG of 28-FEB-2016 11:40, Previous ECG has undetermined rhythm, needs review Confirmed by FRANCHESCA HINOJOSA ([id number]) on 01/21/2018 6:33:25 AM Referred By: Confirmed By:FRANCHESCA HINOJOSA
[2018-01-20] MEDS ORDERED: IOPAMIDOL 76% 75 ML INFUS BTL 75 ML ONE (11:41)
[2018-01-20 12:24] LABS: PLATELET COUNT, AUTOMATED 513 K/uL (150-450)
--- NOTE | 2018-01-20 13:03 | RADIOLOGY IMAGING REPORT ---
FACILITY: [facility] - [place] PATIENT NAME: Lizzette Benjamin : 1945 MR: [id number] V: [id number] EXAM DATE: ORDERING PHYSICIAN: HANSA MERAZ TECHNOLOGIST: Location: [facility] Patient: Lizzette Benjamin : 1945 Visit/Account:[id number] Date of Sevice: 01/20/2018 CHEST PA AND LAT INDICATION: Epigastric pain COMPARISON: January 08, 2018 FINDINGS: The cardiac silhouette is normal in size. Moderate to large sized hiatal hernia is prese nt and is more visible on the comparison. No pneumothorax. No free air. Minimal left basilar new s ubsegmental atelectasis. Otherwise clear lungs. No osseous abnormality. No pleural fluid. IMPRESSION: 1. No apparent acute finding. 2. Minimal left basilar subsegmental atelectasis. 3. Moderate to large hiatal hernia is likely unchanged but better visualized on comparison. Report Dictated By: Dillon Rockwell MD at 01/20/2018 12:57 PM Report E-Signed By: Dillon Rockwell MD at 01/20/2018 12:59 PM WSN:[id number]
[2018-01-20] MEDS ORDERED: fentaNYL CITR 100 MCG/2 ML AMP IVP ONE (13:05)
--- NOTE | 2018-01-20 13:20 | RADIOLOGY IMAGING REPORT ---
FACILITY: [facility] - [place] PATIENT NAME: Lizzette Benjamin : 1945 MR: [id number] V: [id number] EXAM DATE: ORDERING PHYSICIAN: HANSA MERAZ TECHNOLOGIST: Location: [facility] [place] Patient: Lizzette Benjamin : 1945 Visit/Account:[id number] Date of Sevice: 01/20/2018 EXAMINATION: CT abdomen with IV contrast CT pelvis with IV contrast HISTORY: Epigastric pain, question worsening hernia. COMPARISON: 05/02/2017. TECHNIQUE: Axial images were taken through the abdomen and pelvis with intravenous contrast. Sagitt al and coronal reformatted images are also submitted. CONTRAST: 75 mL of IV Isovue-370 One of the following dose optimization techniques was utilized in the performance of this exam: Autom ated exposure control; adjustment of the mA and/or kV according to the patient's size; or use of an i terative reconstruction technique. Specific details can be referenced in the facility's radiology C T exam operational policy. FINDINGS: Liver/biliary: A few liver cysts, the largest measuring 5.8 cm. Postcholecystectomy. Pancreas: Negative. Spleen: Negative. Adrenal glands: Negative. Kidneys: Negative. Pelvic structures: Status post hysterectomy. Bowel: Colonic diverticulosis without evidence of diverticulitis. Appendix is not identified. No pe ricecal inflammatory changes. Large hiatal hernia, similar to previous examination. Peritoneum/retroperitoneum/mesenteries: No intraperitoneal free air or free fluid. Vessels: Mild calcified plaque of the aorta and iliac arteries. Calcified plaque along the splenic a rtery and superior mesenteric artery. Musculoskeletal/body wall: Small fat-containing umbilical hernia. Mild disc and facet degenerative c hanges in the lumbar spine. The bones are osteopenic. Lymph node assessment: Negative. Lower chest: There are a few small pulmonary nodules at the lung bases which are unchanged since the previous examination. IMPRESSION: Large hiatal hernia. This is unchanged compared with the previous examination. Colonic diverticulosis without evidence of diverticulitis. Other nonacute findings as detailed in the body of the report. Report Dictated By: Caleb Barrett MD at 01/20/2018 12:56 PM Report E-Signed By: Caleb Barrett MD at 01/20/2018 1:14 PM WSN:[id number]
[2018-01-20 14:00] VITALS: BP 122/96
[2018-01-20] MEDS ORDERED: PANT40TA65 PO (14:01)
[2018-01-20] MEDS ORDERED: SUCR1TAB85 PO (14:01)
== END 2018-01-20 14:07 | disposition home or self-care (01) ==
LOC: ER 11:32
DX: K44.9 Diaphragmatic hernia without obstruction or gangrene (principal); K57.30 Diverticulosis of large intestine without perforation or abscess without bleeding
CPT/HCPCS: 36415; 71046; 74177; 81001; 83690; 85025; 93005; 96361; 96374; 96375; 99284; J2270; J2405; J3010; J7040; Q9967; 82040; 82247; 82310; 82374; 82435; 82565; 82947; 84075; 84132; 84155; 84295; 84450; 84460; 84520

== ENCOUNTER 2018-01-22 08:52 | Emergency (ER) | payer MEDICARE ==
[2014-10-06 13:55] VITALS: Wt 92.7 kg
[~2018-01-22 08:52] MED LIST changes: +SUCR1TAB85 PO
[2018-01-22] MEDS ORDERED: NS(*) 0.9% 1000 ML BAG 1,000 ML IV ONE (09:02)
[2018-01-22] MEDS ORDERED: ONDANSETRON 4 MG/2 ML VIAL IVP ONE (09:05)
[2018-01-22] MEDS ORDERED: HYDROMORPHONE HCL 1 MG/ML SYRINGE IVP ONE (09:05)
--- NOTE | 2018-01-22 09:07 | ER Report ---
History and Physical Time Seen By MD: 09:05 Hx. of Stated Complaint: LEFT ABDOMINAL PAIN FROM HERNIA THAT HAS NOW BECOME CONSTANT. FOLLOW UP APPT WITH GAETANO IN FEBRUARY. HPI/ROS CHIEF COMPLAINT: Abdominal pain HISTORY OF PRESENT ILLNESS: 72-year-old female extensive psych history comes emergency Department today with a complaint of pain to the left upper and left lower quadrant. Patient says she has a history of a hiatal hernia she was seen here and evaluated several days ago subsequently returned because the pain is worse and it was episodic and now it is constant sharp and stabbing with occasional episodes of dull aching nausea without vomiting no diarrhea patient scheduled to have a surgical intervention performed in the next couple weeks says he cannot wait that long patient has no additional complaints REVIEW OF SYSTEMS: Respiratory: No cough, no dyspnea. Cardiovascular: No chest pain, no palpitations. Gastrointestinal: Nausea abdominal pain Musculoskeletal: No back pain. Remainder of the 14 system rev: Yes Allergies: Coded Allergies: aspirin (Verified Allergy, Severe, SHUTS DOWN HER KIDNEYS, 01/20/18) ampicillin (Verified Allergy, Intermediate, RASH, 01/20/18) Penicillins (Verified Allergy, Unknown, HIVES, 01/20/18) Home Meds Active Scripts Sucralfate (CARAFATE) 1 Gm Tablet, 1 GM PO QID, #60 TAB 0 Refills Take before meals and at bedtime. Crush the tablet and mix with water before taking. Prov:HANSA MERAZ [employer]- 01/20/18 Pantoprazole Sodium (PANTOPRAZOLE SODIUM) 40 Mg Tablet.dr, 1 TAB PO DAILY, #60 TAB 0 Refills Take on an empty stomach and wait 1/2 hour before eating. Prov:HANSA MERAZ [employer]- 01/20/18 Meloxicam (MELOXICAM) 7.5 Mg Tablet, 7.5 MG PO BID PRN for pain, #30 TAB 2 Refills Prov:CLARIBEL DICK MD 01/09/18 Simvastatin (SIMVASTATIN) 20 Mg Tablet, 20 MG PO HS, #30 TAB 3 Refills Prov:CLARIBEL DICK MD 01/09/18 Reported Medications Cholecalciferol (Vitamin D3) (VITAMIN D3) 1,000 Unit Tablet, 1000 UNIT PO QDAY, TAB 01/09/18 Oxybutynin Chloride (OXYBUTYNIN CHLORIDE) 5 Mg Tablet, 5 MG PO BID, TAB 01/01/18 Quetiapine Fumarate (QUETIAPINE FUMARATE) 400 Mg Tablet, 800 MG PO QHS 01/01/18 Donepezil Hcl (DONEPEZIL HCL) 10 Mg Tab.rapdis, 10 MG PO QDAY, TAB 01/01/18 Citalopram Hydrobromide (CITALOPRAM HBR) 40 Mg Tablet, 40 MG PO QDAY, #5 TAB 01/01/18 Multivitamins (Multivitamin) 1 Tab Tablet, 1 TAB PO DAILY, 0 Refills 12/23/08 Levothyroxine Sodium (Synthroid/Levothroid) 0.075 Mg Tab, 0.075 MG PO QDAY, #1 0 Refills 12/23/08 Reviewed Nurses Notes: Yes Old Medical Records Reviewed: Yes Hx Smoking: Yes Smoking Status: Current: Every Day Smoker Exposure to Second Hand Smoke?: No Hx Substance Use Disorder: No Hx Alcohol Use: No Constitutional Vital Sign - Last 24 Hours 01/22/18 08:57 Temp 98.4 Pulse 75 Resp 20 B/P (MAP) 146/83 Pulse Ox 91 O2 Delivery Room Air Physical Exam General Appearance: [The patient is alert, has no immediate need for airway protection and no current signs of toxicity.] [ ] Eyes: Pupils equal and round no injection. Respiratory: Chest is non tender, lungs are clear to auscultation. Cardiac: regular rate and rhythm [ ] Gastrointestinal: Abdomen with tenderness to light palpation to the left upper and left lower quadrant mild guarding no rebound normal bowel sounds Musculoskeletal: Neck: Neck is supple and non tender. Extremities have full range of motion and are non tender. Skin: No rashes or lesions. [ ] DIFFERENTIAL DIAGNOSIS: After history and physical exam differential diagnosis was considered for small bowel obstruction and incarcerated hernia hernia enteritis gastroenteritis ischemic bowel Medical Decision Making Data Points Result Diagram: 01/22/18 1026 01/22/18 1026 Laboratory Hematology Test 01/22/18 00:00 01/22/18 10:26 Urine Color Yellow Urine Clarity Clear Urine pH 7.0 pH (4.8-9.5) Urine Specific [place] 1.024 Urine Protein Negative mg/dL (NEGATIVE) Urine Glucose (UA) Negative mg/dL (NEGATIVE) Urine Ketones Negative mg/dL (NEGATIVE) Urine Blood Negative (NEGATIVE) Urine Nitrite Negative (NEGATIVE) Urine Bilirubin Negative (NEGATIVE) Urine Urobilinogen Negative mg/dL (0.2-1.9) Urine Leukocyte Esterase Negative (NEGATIVE) Urine RBC <1 /HPF (0-2/HPF) Urine WBC 1 /HPF (0-5/HPF) Urine Squamous Epithelial Cells Many /LPF (</=FEW) Urine Bacteria Negative /HPF (NONE-FEW) Urine Mucus None /HPF (NONE-FEW) Red Blood Count 4.71 M/uL (4.17-5.56) Mean Corpuscular Volume 93.4 fL (80.0-96.0) Mean Corpuscular Hemoglobin 31.6 pg (26.0-33.0) Mean Corpuscular Hemoglobin Concent 33.9 g/dL (32.0-36.0) Red Cell Distribution Width 14.1 % (11.5-14.5) Mean Platelet Volume 7.7 fL (7.2-11.1) Neutrophils (%) (Auto) 62.1 % (39.4-72.5) Lymphocytes (%) (Auto) 24.5 % (17.6-49.6) Monocytes (%) (Auto) 8.9 % (4.1-12.4) Eosinophils (%) (Auto) 3.8 % (0.4-6.7) Basophils (%) (Auto) 0.7 % (0.3-1.4) Nucleated RBC Relative Count (auto) 0.4 /100WBC Neutrophils # (Auto) 4.6 K/uL (2.0-7.4) Lymphocytes # (Auto) 1.8 K/uL (1.3-3.6) Monocytes # (Auto) 0.7 K/uL (0.3-1.0) Eosinophils # (Auto) 0.3 K/uL (0.0-0.5) Basophils # (Auto) 0.1 K/uL (0.0-0.1) Nucleated RBC Absolute Count (auto) 0.03 K/uL Peripheral Blood Smear Yes Y/N Prothrombin Time 13.0 seconds (12.0-14.4) Prothromb Time International Ratio 0.98 Activated Partial Thromboplast Time 34 seconds (23-35) Sodium Level 139 mmol/L (137-145) Potassium Level 4.2 mmol/L (3.5-5.0) Chloride Level 109 mmol/L (98-107) Carbon Dioxide Level 23 mmol/L (22-31) Blood Urea Nitrogen 10 mg/dl (7-18) Creatinine 0.70 mg/dl (0.52-1.04) Glomerular Filtration Rate Calc > 60.0 Random Glucose 97 mg/dl (75-110) Lactate 1.3 mmol/L (0.7-2.1) Calcium Level 9.9 mg/dl (8.4-10.2) Total Bilirubin 0.4 mg/dl (0.2-1.3) Aspartate Amino Transf (AST/SGOT) 10 U/L (0-35) Alanine Aminotransferase (ALT/SGPT) 23 U/L (0-56) Alkaline Phosphatase 84 U/L (0-126) Total Protein 6.7 g/dl (6.3-8.2) Albumin 3.8 g/dl (3.5-5.0) Lipase 120 U/L (23-300) Serum Alcohol < 10 mg/dl Chemistry Test 01/22/18 00:00 01/22/18 10:26 Urine Color Yellow Urine Clarity Clear Urine pH 7.0 pH (4.8-9.5) Urine Specific [place] 1.024 Urine Protein Negative mg/dL (NEGATIVE) Urine Glucose (UA) Negative mg/dL (NEGATIVE) Urine Ketones Negative mg/dL (NEGATIVE) Urine Blood Negative (NEGATIVE) Urine Nitrite Negative (NEGATIVE) Urine Bilirubin Negative (NEGATIVE) Urine Urobilinogen Negative mg/dL (0.2-1.9) Urine Leukocyte Esterase Negative (NEGATIVE) Urine RBC <1 /HPF (0-2/HPF) Urine WBC 1 /HPF (0-5/HPF) Urine Squamous Epithelial Cells Many /LPF (</=FEW) Urine Bacteria Negative /HPF (NONE-FEW) Urine Mucus None /HPF (NONE-FEW) White Blood Count 7.5 k/uL (4.5-11.0) Red Blood Count 4.71 M/uL (4.17-5.56) Hemoglobin 14.9 g/dL (12.0-16.0) Hematocrit 44.0 % (34.0-47.0) Mean Corpuscular Volume 93.4 fL (80.0-96.0) Mean Corpuscular Hemoglobin 31.6 pg (26.0-33.0) Mean Corpuscular Hemoglobin Concent 33.9 g/dL (32.0-36.0) Red Cell Distribution Width 14.1 % (11.5-14.5) Platelet Count 533 K/uL (150-450) Mean Platelet Volume 7.7 fL (7.2-11.1) Neutrophils (%) (Auto) 62.1 % (39.4-72.5) Lymphocytes (%) (Auto) 24.5 % (17.6-49.6) Monocytes (%) (Auto) 8.9 % (4.1-12.4) Eosinophils (%) (Auto) 3.8 % (0.4-6.7) Basophils (%) (Auto) 0.7 % (0.3-1.4) Nucleated RBC Relative Count (auto) 0.4 /100WBC Neutrophils # (Auto) 4.6 K/uL (2.0-7.4) Lymphocytes # (Auto) 1.8 K/uL (1.3-3.6) Monocytes # (Auto) 0.7 K/uL (0.3-1.0) Eosinophils # (Auto) 0.3 K/uL (0.0-0.5) Basophils # (Auto) 0.1 K/uL (0.0-0.1) Nucleated RBC Absolute Count (auto) 0.03 K/uL Peripheral Blood Smear Yes Y/N Prothrombin Time 13.0 seconds (12.0-14.4) Prothromb Time International Ratio 0.98 Activated Partial Thromboplast Time 34 seconds (23-35) Glomerular Filtration Rate Calc > 60.0 Lactate 1.3 mmol/L (0.7-2.1) Calcium Level 9.9 mg/dl (8.4-10.2) Total Bilirubin 0.4 mg/dl (0.2-1.3) Aspartate Amino Transf (AST/SGOT) 10 U/L (0-35) Alanine Aminotransferase (ALT/SGPT) 23 U/L (0-56) Alkaline Phosphatase 84 U/L (0-126) Total Protein 6.7 g/dl (6.3-8.2) Albumin 3.8 g/dl (3.5-5.0) Lipase 120 U/L (23-300) Serum Alcohol < 10 mg/dl Coagulation Test 01/22/18 10:26 Prothrombin Time 13.0 seconds Prothromb Time International Ratio 0.98 Activated Partial Thromboplast Time 34 seconds Toxicology Test 01/22/18 10:26 Serum Alcohol < 10 mg/dl Urinalysis Test 01/22/18 00:00 Urine Color Yellow Urine Clarity Clear Urine pH 7.0 pH (4.8-9.5) Urine Specific [place] 1.024 Urine Protein Negative mg/dL (NEGATIVE) Urine Glucose (UA) Negative mg/dL (NEGATIVE) Urine Ketones Negative mg/dL (NEGATIVE) Urine Blood Negative (NEGATIVE) Urine Nitrite Negative (NEGATIVE) Urine Bilirubin Negative (NEGATIVE) Urine Urobilinogen Negative mg/dL (0.2-1.9) Urine Leukocyte Esterase Negative (NEGATIVE) Urine RBC <1 /HPF (0-2/HPF) Urine WBC 1 /HPF (0-5/HPF) Urine Squamous Epithelial Cells Many /LPF (</=FEW) Urine Bacteria Negative /HPF (NONE-FEW) Urine Mucus None /HPF (NONE-FEW) ED Course/Re-evaluation ED Course ED clinical course patient with a CT scan demonstrating diverticulosis number to diverticulitis with a hiatal hernia nonincarcerated seamus spoke to our general surgeon at our referred her to a specialist [facility] hernia repair in [place] she failed to follow up with that appointment fell to follow up with the general dyson ezra here he is requesting that she will be returned back to the general surgeon in [place] spoke to the family they agree with this plan no antibodies are indicated this time she has no sign of infection she is afebrile she is able tolerate by mouth will be discharged with follow-up Decision to Disposition Date: Jan 22, 2018 Decision to Disposition Time: 11:15 Depart Departure Latest Vital Signs Vital Signs Date Time Temp Pulse Resp B/P (MAP) Pulse Ox O2 Delivery O2 Flow Rate FiO2 01/22/18 08:57 98.4 75 20 146/83 91 Room Air Impression: Primary Impression: Diverticulosis Additional Impression: Hiatal hernia Condition: Improved Disposition: HOME OR SELF-CARE Referrals: CLARIBEL DICK MD (PCP) FRANCHESCA SALTER MD 2 Weeks Patient Instructions: Diverticulosis (DC), Hiatal Hernia (DC) Problem Qualifiers RIAZ PEREZ MD Jan 22, 2018 09:07
[2018-01-22] MEDS ORDERED: IOPAMIDOL 76% 75 ML INFUS BTL 75 ML ONE (09:52)
[2018-01-22 10:30] VITALS: BP 108/67
[2018-01-22 10:33] LABS: PLATELET COUNT, AUTOMATED 533 K/uL (150-450)
--- NOTE | 2018-01-22 10:35 | RADIOLOGY IMAGING REPORT ---
FACILITY: [facility] - [place] PATIENT NAME: Lizzette Benjamin : 1945 MR: [id number] V: [id number] EXAM DATE: ORDERING PHYSICIAN: RIAZ PEREZ TECHNOLOGIST: Location: [facility] Patient: Lizzette Benjamin : 1945 Visit/Account:[id number] Date of Sevice: 01/22/2018 ABDOMEN/PELVIS WITH CONTRAST HISTORY: pain luq TECHNIQUE: Following administration of IV contrast contiguous axial images acquired through the abdom en/pelvis. Coronal and sagittal reformatting also performed. One of the following dose optimization techniques was utilized in the performance of this exam: Automated exposure control; adjustment of t he mA and/or kV according to the patient's size; or use of an iterative reconstruction technique. S pecific details can be referenced in the facility's radiology CT exam operational policy. CONTRAST: 75 mL Isovue-370 COMPARISON: Comparison CT 01/20/2018 and 07/01/2013 FINDINGS: Visualized lung bases: Negative. Hepatobiliary: There are several cysts in the liver, largest in the posterior aspect liver measuring 6.1 x 4.3 cm. This is not significantly changed from 2013. Liver otherwise unremarkable. Remote c holecystectomy unchanged from 2013. Spleen: Negative. Adrenals: Negative. Pancreas: There are several calcifications in the uncinate process of the pancreas unchanged from possibly related to remote episode of pancreatitis. The pancreas is otherwise unremarkable. Kidneys ureters or bladder: Negative. Genitalia: Remote hysterectomy. GI: Again seen is diverticulosis of the sigmoid and descending colon without definite CT evidence of diverticulitis. A large hiatal hernia again noted. Vessels/spaces/nodes: Negative. Bones/soft tissues: Negative. Additional findings: None pertinent. IMPRESSION: No acute pathology identified. Large hiatal hernia. Colonic diverticulosis. Several stable hepatic cyst Remote cholecystectomy and hysterectomy. Report Dictated By: Aldo Dominique MD at 01/22/2018 10:23 AM Report E-Signed By: Aldo Dominique MD at 01/22/2018 10:31 AM WSN:[id number]
[2018-01-22 10:46] LABS: INR 0.98
== END 2018-01-22 11:21 | disposition home or self-care (01) ==
LOC: ER 09:03
DX: K57.30 Diverticulosis of large intestine without perforation or abscess without bleeding (principal); K44.9 Diaphragmatic hernia without obstruction or gangrene
CPT/HCPCS: 36415; 74177; 81001; 83605; 83690; 85025; 85610; 85730; 96361; 96374; 96375; 99284; G0480; J1170; J2405; J7030; Q9967; 80320; 82040; 82247; 82310; 82374; 82435; 82565; 82947; 84075; 84132; 84155; 84295; 84450; 84460; 84520

== ENCOUNTER → 2018-01-24 | Outpatient (CLI) | payer MEDICARE ==
[2014-10-06 13:55] VITALS: BMI 29.1
[~2018-01-24] MED LIST changes: +HYDROMORPHONE HCL 1 MG/ML SYRINGE ONE; +ONDANSETRON 4 MG/2 ML VIAL ONE
--- NOTE | 2018-01-24 15:32 | RADIOLOGY IMAGING REPORT ---
FACILITY: [facility] [place] PATIENT NAME: RADHA PHILIP : [id number] MR: [id number] V: [id number] EXAM DATE: [id number] ORDERING PHYSICIAN: CLARIBEL DICK TECHNOLOGIST: Sarina German PROCEDURE:BILATERAL DIAGNOSTIC DIGITAL MAMMOGRAM WITH CAD ASSISTED INTERPRETATION & 3D TOMOSYNTHESIS COMPARISON:Prior mammograms 03/31/2013, Bilateral breast Ultrasound 01/08/2018. INDICATIONS:Bilateral generalized breast pain for 3 months. TISSUE DENSITY: Predominantly fatty tissue. FINDINGS: There is no mammographic finding suspicious for malignancy. There is no significant change compared to 2013. DIAGNOSTIC CATEGORY 1--NEGATIVE. RECOMMENDATIONS: CLINICAL FOLLOW UP FOR BILATERAL BREAST PAIN. ANNUAL BILATERAL SCREENING MAMMOGRAM AND CLINICAL EVALUATION. I discussed the results and recommendation with the patient following this study. Dictated by: Ana Garber M.D. on 01/24/2018 at 12:19 Transcribed by: VICTOR MANUEL on 01/24/2018 at 14:30 Approved by: Ana Garber M.D. on 01/24/2018 at 15:31 [facility]
== END ==
LOC: MAMO 04:38
PROVIDERS: ATTEND Internal Medicine
DX: N63.10 Unspecified lump in the right breast, unspecified quadrant (principal); R92.8 Other abnormal and inconclusive findings on diagnostic imaging of breast
CPT/HCPCS: 77062; 77066

== ENCOUNTER → 2018-03-19 | Outpatient (CLI) | payer MEDICARE ==
[2014-10-06 13:55] VITALS: BMI 29.1
[~2018-03-19] MED LIST changes: -HYDROMORPHONE HCL 1 MG/ML SYRINGE ONE; -ONDANSETRON 4 MG/2 ML VIAL ONE; +REGADENOSON 0.4 MG/5 ML SYR ONE
--- NOTE | 2018-03-19 18:57 | RADIOLOGY IMAGING REPORT ---
FACILITY: [facility] PATIENT NAME: Lizzette Benjamin : 1945 MR: [id number] V: [id number] EXAM DATE: ORDERING PHYSICIAN: RIP MAY TECHNOLOGIST: Location: [facility] [place] Patient: Lizzette Benjamin : 1945 Visit/Account:[id number] Date of Sevice: 03/19/2018 EXAMINATION: Single isotope SPECT imaging with regadenoson infusion and gated SPECT imaging. DATE OF EXAMINATION: 03/19/2018. DATE OF INTERPRETATION: 03/19/2018. REQUESTING PHYSICIAN: RIP MAY. INDICATION: The patient is a 72-year-old female evaluated for shortness of breath and chest pain. PROCEDURE: After informed consent the patient received an intravenous injection of 12.0 mCi of Tc-99 m sestamibi followed at an appropriate time interval by rest imaging. The patient then subsequently received an intravenous infusion of 0.4 mg of regadenoson per protocol without complication. Resting heart rate was 69 bpm with a peak heart rate of 98 bpm. Blood pressure at rest was 115 / 78 and fol lowing infusion was 115 / 78. Baseline EKG demonstrates normal sinus rhythm, normal tracing. There were no EKG changes of ischemia following infusion. Symptoms were nonspecific. The patient then rec eived an intravenous injection of 29.2 mCi of Tc-99m sestamibi followed by stress imaging. RAW DATA: Examination of the summed raw data revealed a good quality study. MYOCARDIAL PERFUSION: The tomographic images demonstrate a moderate size, mild perfusion defect in t he anterior wall on resting images, this completely resolves on stress prone images. Stress prone jose e ges show normal perfusion. GATED IMAGES: The gated images demonstrate normal LV wall motion and systolic function. IMPRESSION: 1. No ischemic ECG changes with Lexiscan 2. Normal myocardial perfusion scan. 3. Normal LV systolic function; LVEF 71%. 4. Based on the results of this exam, the patient appears to be at low risk for future cardiovascular events. Report Dictated By: Dhruv Bowman at 03/19/2018 6:45 PM Report E-Signed By: Dhruv Bowman at 03/19/2018 6:53 PM WSN:[id number]
--- NOTE | 2018-03-20 06:36 | RT STRESS TEST REPORT ---
FACILITY: [facility] PATIENT NAME: RADHA PHILIP : [id number] MR: [id number] V: [id number] EXAM DATE: ORDERING PHYSICIAN: RIP MAY TECHNOLOGIST: Isaiah Acquisition Time: 2018-03-19 14:17:16 Total Exercise Time: 00:01:00 Test Indications: SOB, CP Medications: SEE NUCLEAR MED SHEET Protocol: LEXISCAN Max HR: 098 BPM 66% of Pred: 147 BPM Max BP: 115/078 mmHG Max Work Load: 1.0 METS Confirmed by FRANCHESCA HINOJOSA ([id number]) on 03/20/2018 6:35:47 AM Referred By: Overread By: FRANCHESCA HINOJOSA
== END ==
LOC: NUC 01:14
PROVIDERS: ATTEND Family Medicine
DX: R06.02 Shortness of breath (principal); R07.9 Chest pain, unspecified
CPT/HCPCS: 78452; 93017; A9500; J2785

== ENCOUNTER 2018-08-11 12:42 | Emergency (ER) | payer MEDICARE ==
[2014-10-06 13:55] VITALS: Wt 89.1 kg
[~2018-08-11 12:42] MED LIST changes: -OMEP-125 PO; +OMEP-126 PO; -REGADENOSON 0.4 MG/5 ML SYR ONE; -SIMV5TAB60 PO; +SIMV5TAB69 PO; -TRAZ50TA34 PO; +TRAZ50TA52 PO
--- NOTE | 2018-08-11 12:56 | ER Report ---
History and Physical Time Seen By MD: 12:56 Hx. of Stated Complaint: PT REPORTS ABD PAIN AND SWELLING SINCE SURGERY IN APRIL HPI/ROS CHIEF COMPLAINT: Abdominal pain and swelling HISTORY OF PRESENT ILLNESS: 73 year old female presents to ED with abdominal pain and swelling the past 4 days. States she has generalized abdominal pain and swelling. Pain is sharp and abdomen in tender to the touch. Patient reports hx of hernia repair in April and has had abdominal distension and pain off and on since then, however, four days ago, the pain intensified. Reports decreased appetite, no nausea, no vomiting. Has taken tylenol for her abdominal pain with not much relief. REVIEW OF SYSTEMS: Constitutional: No fevers, chills. Decreased appetite. Respiratory: No cough, no dyspnea. Cardiovascular: No chest pain, no palpitations. Gastrointestinal: No vomiting. Abdominal pain as noted above. Abdominal distention. No constipation, no diarrhea. : No burning or frequency of urination. Musculoskeletal: No back pain. Allergies: Coded Allergies: aspirin (Verified Allergy, Severe, SHUTS DOWN HER KIDNEYS, 01/20/18) ampicillin (Verified Allergy, Intermediate, RASH, 01/20/18) Penicillins (Verified Allergy, Unknown, HIVES, 01/20/18) Home Meds Active Scripts Sucralfate (CARAFATE) 1 Gm Tablet, 1 GM PO QID, #60 TAB 0 Refills Take before meals and at bedtime. Crush the tablet and mix with water before taking. Prov:HANSA MERAZ [facility]- 01/20/18 Pantoprazole Sodium (PANTOPRAZOLE SODIUM) 40 Mg Tablet.dr, 1 TAB PO DAILY, #60 TAB 0 Refills Take on an empty stomach and wait 1/2 hour before eating. Prov:HANSA MERAZ [facility]- 01/20/18 Meloxicam (MELOXICAM) 7.5 Mg Tablet, 7.5 MG PO BID PRN for pain, #30 TAB 2 Refills Prov:CLARIBEL DICK MD 01/09/18 Simvastatin (SIMVASTATIN) 20 Mg Tablet, 20 MG PO HS, #30 TAB 3 Refills Prov:CLARIBEL DICK MD 01/09/18 Reported Medications Cholecalciferol (Vitamin D3) (VITAMIN D3) 1,000 Unit Tablet, 1000 UNIT PO QDAY, TAB 01/09/18 Oxybutynin Chloride (OXYBUTYNIN CHLORIDE) 5 Mg Tablet, 5 MG PO BID, TAB 01/01/18 Quetiapine Fumarate (QUETIAPINE FUMARATE) 400 Mg Tablet, 800 MG PO QHS 01/01/18 Donepezil Hcl (DONEPEZIL HCL) 10 Mg Tab.rapdis, 10 MG PO QDAY, TAB 01/01/18 Citalopram Hydrobromide (CITALOPRAM HBR) 40 Mg Tablet, 40 MG PO QDAY, #5 TAB 01/01/18 Multivitamins (Multivitamin) 1 Tab Tablet, 1 TAB PO DAILY, 0 Refills 12/23/08 Levothyroxine Sodium (Synthroid/Levothroid) 0.075 Mg Tab, 0.075 MG PO QDAY, #1 0 Refills 12/23/08 Past Medical/Surgical History Past medical hx of TIA, migraines, DVT of right leg, pneumonia, GERD, arthritis, thyroid disorder Past surgical hx of appendectomy, cholecystectomy, polyp removal, hiatal hernia repair 04/2018, hysterectomy, 1980, back surgery, tonsillectomy Reviewed Nurses Notes: Yes Hx Smoking: Yes Smoking Status: Current: Every Day Smoker Exposure to Second Hand Smoke?: No Hx Substance Use Disorder: No Hx Alcohol Use: No Constitutional Vital Sign - Last 24 Hours 08/11/18 08/11/18 08/11/18 08/11/18 12:42 12:51 13:00 13:15 Temp 97.8 Pulse 87 78 Resp 16 B/P (MAP) 116/81 116/81 (93) 119/72 (88) Pulse Ox 91 89 O2 Delivery Room Air 08/11/18 08/11/18 08/11/18 08/11/18 13:30 13:45 14:00 14:30 Pulse 81 B/P (MAP) 112/69 (83) 116/74 (88) 103/84 (90) Pulse Ox 88 08/11/18 08/11/18 14:35 15:00 Pulse 81 B/P (MAP) 101/34 (56) Pulse Ox 93 Physical Exam General Appearance: The patient is alert, has no immediate need for airway protection and no current signs of toxicity. Eyes: Pupils equal and round no injection. Respiratory: Chest is non tender, lungs are clear to auscultation. Cardiac: regular rate and rhythm. Non-pitting edema to bilateral lower extremities. Gastrointestinal: Abdomen is tender to palpation, distended. No masses. Bowel sounds hypoactive. Musculoskeletal: Neck: Neck is supple and non tender. Extremities have full range of motion and are non tender. Skin: No rashes or lesions. DIFFERENTIAL DIAGNOSIS: After history and physical exam differential diagnosis was considered for bowel obstruction, necrotic bowel, peritonitis, pancreatitis, constipation, heart failure. Medical Decision Making Data Points Result Diagram: 08/11/18 1326 08/11/18 1326 Laboratory Hematology Test 08/11/18 12:52 08/11/18 13:26 Urine Color Yellow Urine Clarity Clear Urine pH 6.0 pH (4.8-9.5) Urine Specific [place] 1.011 Urine Protein Negative mg/dL (NEGATIVE) Urine Glucose (UA) Negative mg/dL (NEGATIVE) Urine Ketones Negative mg/dL (NEGATIVE) Urine Blood Negative (NEGATIVE) Urine Nitrite Negative (NEGATIVE) Urine Bilirubin Negative (NEGATIVE) Urine Urobilinogen Negative mg/dL (0.2-1.9) Urine Leukocyte Esterase Negative (NEGATIVE) Urine RBC <1 /HPF (0-2/HPF) Urine WBC <1 /HPF (0-5/HPF) Urine Squamous Epithelial Cells Many /LPF (</=FEW) Urine Amorphous Crystals Few /HPF Urine Bacteria Negative /HPF (NONE-FEW) Urine Hyaline Casts Few /LPF (NONE-FEW) Urine Mucus None /HPF (NONE-FEW) Red Blood Count 5.12 M/uL (4.17-5.56) Mean Corpuscular Volume 92.9 fL (80.0-96.0) Mean Corpuscular Hemoglobin 30.8 pg (26.0-33.0) Mean Corpuscular Hemoglobin Concent 33.1 g/dL (32.0-36.0) Red Cell Distribution Width 14.1 % (11.5-14.5) Mean Platelet Volume 7.8 fL (7.2-11.1) Neutrophils (%) (Auto) 62.5 % (39.4-72.5) Lymphocytes (%) (Auto) 26.6 % (17.6-49.6) Monocytes (%) (Auto) 7.3 % (4.1-12.4) Eosinophils (%) (Auto) 3.1 % (0.4-6.7) Basophils (%) (Auto) 0.5 % (0.3-1.4) Nucleated RBC Relative Count (auto) 0.0 /100WBC Neutrophils # (Auto) 5.6 K/uL (2.0-7.4) Lymphocytes # (Auto) 2.4 K/uL (1.3-3.6) Monocytes # (Auto) 0.7 K/uL (0.3-1.0) Eosinophils # (Auto) 0.3 K/uL (0.0-0.5) Basophils # (Auto) 0.0 K/uL (0.0-0.1) Nucleated RBC Absolute Count (auto) 0.00 K/uL Peripheral Blood Smear Yes Y/N Erythrocyte Sedimentation Rate 8 mm/HOUR (0-30) Sodium Level 140 mmol/L (137-145) Potassium Level 4.4 mmol/L (3.5-5.0) Chloride Level 110 mmol/L (98-107) Carbon Dioxide Level 22 mmol/L (22-31) Blood Urea Nitrogen 12 mg/dl (7-18) Creatinine 0.70 mg/dl (0.52-1.04) Glomerular Filtration Rate Calc > 60.0 Random Glucose 96 mg/dl (75-110) Calcium Level 10.3 mg/dl (8.4-10.2) Total Bilirubin 0.2 mg/dl (0.2-1.3) Aspartate Amino Transf (AST/SGOT) 16 U/L (0-35) Alanine Aminotransferase (ALT/SGPT) 30 U/L (0-56) Alkaline Phosphatase 107 U/L (0-126) C-Reactive Protein < 0.5 mg/dl (<1.0) B-Type Natriuretic Peptide 9 pg/ml (0-100) Total Protein 7.2 g/dl (6.3-8.2) Albumin 4.3 g/dl (3.5-5.0) Amylase Level 132 U/L (0-110) Lipase 422 U/L (23-300) Chemistry Test 08/11/18 12:52 08/11/18 13:26 Urine Color Yellow Urine Clarity Clear Urine pH 6.0 pH (4.8-9.5) Urine Specific [place] 1.011 Urine Protein Negative mg/dL (NEGATIVE) Urine Glucose (UA) Negative mg/dL (NEGATIVE) Urine Ketones Negative mg/dL (NEGATIVE) Urine Blood Negative (NEGATIVE) Urine Nitrite Negative (NEGATIVE) Urine Bilirubin Negative (NEGATIVE) Urine Urobilinogen Negative mg/dL (0.2-1.9) Urine Leukocyte Esterase Negative (NEGATIVE) Urine RBC <1 /HPF (0-2/HPF) Urine WBC <1 /HPF (0-5/HPF) Urine Squamous Epithelial Cells Many /LPF (</=FEW) Urine Amorphous Crystals Few /HPF Urine Bacteria Negative /HPF (NONE-FEW) Urine Hyaline Casts Few /LPF (NONE-FEW) Urine Mucus None /HPF (NONE-FEW) White Blood Count 9.0 k/uL (4.5-11.0) Red Blood Count 5.12 M/uL (4.17-5.56) Hemoglobin 15.8 g/dL (12.0-16.0) Hematocrit 47.6 % (34.0-47.0) Mean Corpuscular Volume 92.9 fL (80.0-96.0) Mean Corpuscular Hemoglobin 30.8 pg (26.0-33.0) Mean Corpuscular Hemoglobin Concent 33.1 g/dL (32.0-36.0) Red Cell Distribution Width 14.1 % (11.5-14.5) Platelet Count 599 K/uL (150-450) Mean Platelet Volume 7.8 fL (7.2-11.1) Neutrophils (%) (Auto) 62.5 % (39.4-72.5) Lymphocytes (%) (Auto) 26.6 % (17.6-49.6) Monocytes (%) (Auto) 7.3 % (4.1-12.4) Eosinophils (%) (Auto) 3.1 % (0.4-6.7) Basophils (%) (Auto) 0.5 % (0.3-1.4) Nucleated RBC Relative Count (auto) 0.0 /100WBC Neutrophils # (Auto) 5.6 K/uL (2.0-7.4) Lymphocytes # (Auto) 2.4 K/uL (1.3-3.6) Monocytes # (Auto) 0.7 K/uL (0.3-1.0) Eosinophils # (Auto) 0.3 K/uL (0.0-0.5) Basophils # (Auto) 0.0 K/uL (0.0-0.1) Nucleated RBC Absolute Count (auto) 0.00 K/uL Peripheral Blood Smear Yes Y/N Erythrocyte Sedimentation Rate 8 mm/HOUR (0-30) Glomerular Filtration Rate Calc > 60.0 Calcium Level 10.3 mg/dl (8.4-10.2) Total Bilirubin 0.2 mg/dl (0.2-1.3) Aspartate Amino Transf (AST/SGOT) 16 U/L (0-35) Alanine Aminotransferase (ALT/SGPT) 30 U/L (0-56) Alkaline Phosphatase 107 U/L (0-126) C-Reactive Protein < 0.5 mg/dl (<1.0) B-Type Natriuretic Peptide 9 pg/ml (0-100) Total Protein 7.2 g/dl (6.3-8.2) Albumin 4.3 g/dl (3.5-5.0) Amylase Level 132 U/L (0-110) Lipase 422 U/L (23-300) Urinalysis Test 08/11/18 12:52 Urine Color Yellow Urine Clarity Clear Urine pH 6.0 pH (4.8-9.5) Urine Specific [place] 1.011 Urine Protein Negative mg/dL (NEGATIVE) Urine Glucose (UA) Negative mg/dL (NEGATIVE) Urine Ketones Negative mg/dL (NEGATIVE) Urine Blood Negative (NEGATIVE) Urine Nitrite Negative (NEGATIVE) Urine Bilirubin Negative (NEGATIVE) Urine Urobilinogen Negative mg/dL (0.2-1.9) Urine Leukocyte Esterase Negative (NEGATIVE) Urine RBC <1 /HPF (0-2/HPF) Urine WBC <1 /HPF (0-5/HPF) Urine Squamous Epithelial Cells Many /LPF (</=FEW) Urine Amorphous Crystals Few /HPF Urine Bacteria Negative /HPF (NONE-FEW) Urine Hyaline Casts Few /LPF (NONE-FEW) Urine Mucus None /HPF (NONE-FEW) EKG/Imaging Imaging CT ABDOMEN PELVIS W/ CON HISTORY: abdominal pain and swelling TECHNIQUE: Following administration of IV contrast contiguous axial images acquired through the abdomen/pelvis. Coronal and sagittal reformatting also performed.Dose Lowering Technique One of the following dose optimization techniques was utilized in the performan ce of this exam: Automated exposure control; adjustment of the mA and/or kV according to the patient's size; or use of an iterative reconstruction technique. Specific details can be referenced in the facility's radiology CT exam operational policy. CONTRAST: 75 mL Isovue-370 COMPARISON: January 22, 2018 and January 20, 2018 FINDINGS: Visualized lung bases: There is a 6 mm noncalcified nodule posterior lateral aspect of the right lower lobe appears unchanged when compared to January 20, 2018 is a small amount of linear stranding in the left lower lobe consistent with scarring versus atelectasis Hepatobiliary: Postsurgical changes from a cholecystectomy. Hepatic cysts appear relatively stable Spleen: Negative. Adrenals: Negative. Pancreas: Negative. Kidneys ureters or bladder: Negative. Genitalia: Hysterectomy GI: There postsurgical changes from a hiatal hernia repair. there is diverticulosis of the left side of the colon although no CT evidence of acute diverticulitis Vessels/spaces/nodes: Scattered atherosclerotic calcifications of the abdominal aorta and branch vessels including the splenic artery and SMA Bones/soft tissues: Gentle S-shaped scoliosis of the lumbar spine. Small umbilical hernia containing fat Additional findings: None pertinent. IMPRESSION: Postsurgical changes from a cholecystectomy, hysterectomy and hiatal hernia repair Diverticulosis of the left side of the colon although no CT evidence of acute diverticulitis Additional chronic findings as described Report Dictated By: Alondra Worrell MD at 08/11/2018 2:37 PM Report E-Signed By: Alondra Worrell MD at 08/11/2018 2:46 PM ED Course/Re-evaluation ED Course Upon arrival to the ED patient admitted to an exam room, hx and physical obtained, differentials considered. Patient presents to ED with generalized abdo darien pain and swelling the past 4 days. Pain is sharp and abdomen in tender to the touch. Patient reports hx of hernia repair in April and has had abdominal distension and pain off and on since then, however, four days ago, the pain intensified. Reports decreased appetite, no nausea, no vomiting, no constipation, no diarrhea, no urinary symptoms, no dyspnea. Has taken tylenol for her abdominal pain with not much relief. Lungs clear throughout. Abdomen is tender to palpation, distended. No masses. Bowel sounds hypoactive. CBC, CMP, amylase, lipase, ESR, CRP, CT of abdomen and pelvis, BNP ordered. IV started. No signs of acute or inflammatory processes noted on labs: ESR 8, CRP <0.5, BNP 9, UA negative. Amylase and lipase are slightly elevated, however, there are no changes to pancreas on CT scan. CT with no acute changes. Since no acute findings noted today, discussed with patient about going home and following up with her surgeon who did the hernia repair. She is to call and make an appointment as soon as she can. She will also follow-up with her PCP. Patient agrees to plan of care. Decision to Disposition Date: Aug 11, 2018 Decision to Disposition Time: 15:17 Depart Departure Latest Vital Signs Vital Signs Date Time Temp Pulse Resp B/P (MAP) Pulse Ox O2 Delivery O2 Flow Rate FiO2 08/11/18 15:00 101/34 (56) 08/11/18 14:35 81 93 08/11/18 12:42 97.8 16 Room Air Impression: Primary Impression: Epigastric abdominal pain Condition: Improved Disposition: HOME OR SELF-CARE Referrals: CLARIBEL DICK MD (PCP) Patient Instructions: Abdominal Pain (ED) Additional Instructions: Get plenty of rest. Increase fluid intake. Follow up with your surgeon, call this afternoon to make an appointment. Use the warm compresses to the abdomen and chest to see if that helps with the swelling. Return to the ER if condition worsens. Continue with current medications. ZURI FARIASP Aug 11, 2018 12:56
[2018-08-11] MEDS ORDERED: IOPAMIDOL 76% 100 ML INFUS BTL 100 ML ONE (13:37)
[2018-08-11 13:48] LABS: PLATELET COUNT, AUTOMATED 599 K/uL (150-450)
--- NOTE | 2018-08-11 14:51 | RADIOLOGY IMAGING REPORT ---
FACILITY: [facility] PATIENT NAME: Lizzette Benjamin : 1945 MR: [id number] V: [id number] EXAM DATE: ORDERING PHYSICIAN: ZURI FARIAS TECHNOLOGIST: Location: [facility] [place] Patient: Lizzette Benjamin : 1945 Visit/Account:[id number] Date of Sevice: 08/11/2018 CT ABDOMEN PELVIS W/ CON HISTORY: abdominal pain and swelling TECHNIQUE: Following administration of IV contrast contiguous axial images acquired through the abdom en/pelvis. Coronal and sagittal reformatting also performed.Dose Lowering Technique One of the following dose optimization techniques was utilized in the performance of this exam: Autom ated exposure control; adjustment of the mA and/or kV according to the patient's size; or use of an i terative reconstruction technique. Specific details can be referenced in the facility's radiology C T exam operational policy. CONTRAST: 75 mL Isovue-370 COMPARISON: January 22, 2018 and January 20, 2018 FINDINGS: Visualized lung bases: There is a 6 mm noncalcified nodule posterior lateral aspect of the right low er lobe appears unchanged when compared to January 20, 2018 is a small amount of linear stranding in the left lower lobe consistent with scarring versus atelectasis Hepatobiliary: Postsurgical changes from a cholecystectomy. Hepatic cysts appear relatively stable Spleen: Negative. Adrenals: Negative. Pancreas: Negative. Kidneys ureters or bladder: Negative. Genitalia: Hysterectomy GI: There postsurgical changes from a hiatal hernia repair. there is diverticulosis of the left side of the colon although no CT evidence of acute diverticuliti s Vessels/spaces/nodes: Scattered atherosclerotic calcifications of the abdominal aorta and branch ves sels including the splenic artery and SMA Bones/soft tissues: Gentle S-shaped scoliosis of the lumbar spine. Small umbilical hernia containin g fat Additional findings: None pertinent. IMPRESSION: Postsurgical changes from a cholecystectomy, hysterectomy and hiatal hernia repair Diverticulosis of the left side of the colon although no CT evidence of acute diverticulitis Additional chronic findings as described Report Dictated By: Alondra Worrell MD at 08/11/2018 2:37 PM Report E-Signed By: Alondra Worrell MD at 08/11/2018 2:46 PM WSN:[email or web address]
[2018-08-11 15:00] VITALS: BP 101/34
== END 2018-08-11 15:37 | disposition home or self-care (01) ==
LOC: ER 12:50
DX: R10.13 Epigastric pain (principal); R79.89 Other specified abnormal findings of blood chemistry; F17.200 Nicotine dependence, unspecified, uncomplicated
CPT/HCPCS: 74177; 81001; 82150; 83690; 83880; 85025; 85651; 86140; 99284; Q9967; 82040; 82247; 82310; 82374; 82435; 82565; 82947; 84075; 84132; 84155; 84295; 84450; 84460; 84520

== ENCOUNTER → 2018-10-14 | Outpatient (CLI) | payer MEDICARE ==
[2014-10-06 13:55] VITALS: BMI 29.1
== END ==
LOC: LAB 11:21
PROVIDERS: ATTEND Surgery
DX: K44.9 Diaphragmatic hernia without obstruction or gangrene (principal); R10.13 Epigastric pain; N64.4 Mastodynia; M54.9 Dorsalgia, unspecified; N63.0 Unspecified lump in unspecified breast
CPT/HCPCS: 36415; 82565

== ENCOUNTER → 2018-10-24 | Outpatient (CLI) | payer MEDICARE ==
[2014-10-06 13:55] VITALS: BMI 29.1
[~2018-10-24] MED LIST changes: +IOPAMIDOL 76% 100 ML INFUS BTL 100 ML ONE
--- NOTE | 2018-10-24 10:33 | RADIOLOGY IMAGING REPORT ---
FACILITY: [facility] PATIENT NAME: Lizzette Benjamin : 1945 MR: [id number] V: [id number] EXAM DATE: ORDERING PHYSICIAN: FRANCHESCA SALTER TECHNOLOGIST: Location: [facility] Patient: Lizzette Benjamin : 1945 Visit/Account:[id number] Date of Sevice: 10/24/2018 CT ABDOMEN PELVIS W/ CON HISTORY: Epigastric abdominal pain, abdominal wall pain in both lower quadrants TECHNIQUE: Following administration of IV contrast contiguous axial images acquired through the abdom en/pelvis. Coronal and sagittal reformatting also performed.Dose Lowering Technique One of the following dose optimization techniques was utilized in the performance of this exam: Autom ated exposure control; adjustment of the mA and/or kV according to the patient's size; or use of an i terative reconstruction technique. Specific details can be referenced in the facility's radiology C T exam operational policy. CONTRAST: 75 mL Isovue-370 COMPARISON: August 11, 2018 FINDINGS: Visualized lung bases: 6 mm subpleural nodule posterior lateral aspect right lower lobe, image one o f series 2, appears stable dating back to January 20, 2018. There is also 2 mm subpleural nodule la teral aspect right lower lobe best appreciated on image eight of series 2 that also remains stable. Mild scarring in the left lower lobe also stable . Hepatobiliary: Postsurgical changes from a cholecystectomy. Hepatic cyst remain stable Spleen: Negative. Adrenals: Negative. Pancreas: Stable calcifications in the uncinate process Kidneys ureters or bladder: Negative. Genitalia: Hysterectomy GI: There is diverticulosis of the left-sided the colon. There is a very mild wall thickening in th e distal descending/sigmoid colon best appreciated on axial images 100-110 of series 2 and coronal im age 46 of series 4. This may represent mild diverticulitis although there is no surrounding inflamma tory change in the adjacent fat. A metallic band is again seen at the GE junction which may be relat ed to prior hiatal hernia repair Vessels/spaces/nodes: There are scattered atherosclerotic calcifications the abdominal aorta and bra nch vessels. Bones/soft tissues: There is a small umbilical hernia containing fat Additional findings: None pertinent. IMPRESSION: There is very mild thickening in the distal descending/sigmoid colon as described above with no surro unding inflammatory change of the pelvis may represent mild diverticulitis. Pulmonary nodules the right lower lobe remains stable Hepatic cyst remain stable Additional chronic findings as described Report Dictated By: Alondra Worrell MD at 10/24/2018 10:13 AM Report E-Signed By: Alondra Worrell MD at 10/24/2018 10:24 AM WSN:[email or web address]
== END ==
LOC: CT 04:12
PROVIDERS: ATTEND Surgery
DX: K76.89 Other specified diseases of liver (principal); K63.89 Other specified diseases of intestine; R91.8 Other nonspecific abnormal finding of lung field
CPT/HCPCS: 74177; Q9967